=== PATIENT | female | born 1995 | race Caucasian/White ===

== ENCOUNTER → 2017-11-05 15:18 | Outpatient (CLI) | payer BC, SELFPAY ==
--- NOTE | 2017-11-05 15:25 | US_ITS ---
US extremity RT limited CLINICAL INDICATION: Palpable abnormality in the lower right back ITS.REASON: LUMP IF SKIN OF BACK ORDERING PHYSICIAN: Jesica Palomino PATIENT AGE: 22 years FINDINGS: There is a well circumscribed oval 2.5 x 2.2 x 1 cm homogeneous area of isoechogenicity in the subcutaneous tissue in the lower back corresponding to the palpable abnormality consistent with a lipoma. No cystic changes. No other significant anomalies. IMPRESSION: Palpable abnormality in the lower back on the right compatible with a lipoma
== END ==
PROVIDERS: PCP Nurse Practitioner Family; Visit Provider Nurse Practitioner Family
DX: R22.2 Localized swelling, mass and lump, trunk (principal); M54.5 Low back pain
CPT/HCPCS: 76882

== ENCOUNTER → 2019-04-21 11:59 | Outpatient (CLI) | payer BC, SELFPAY ==
[2019-04-21 14:57] LABS: Basophils % 0.4 % (0.1-2.0); Eosinophils # 0.1 K/mm3 (0.0-0.4); Eosinophils % 0.7 % (0.1-12.0); Hematocrit 37.7 % (37.0-47.0); Hemoglobin 12.6 g/dL (12.2-16.2); Lymphocytes # 1.6 K/mm3 (0.7-4.5); Lymphocytes % 21.7 % (10-50); Mean Corpuscular HGB Conc 33.4 g/dL (31.8-35.4); Mean Corpuscular Hemoglobin 28.2 pg (27.0-31.2); Mean Corpuscular Volume 84.4 fl (81-99); Mean Platelet Volume 8.4 fl (7.4-10.4); Monocytes # 0.4 K/mm3 (0.1-1.0); Monocytes % 5.3 % (1.7-9.3); Neutrophils # 5.1 K/mm3 (1.8-7.8); Neutrophils % 71.9 % (37.0-80.0); Platelet Count 270 K/mm3 (142-424); Red Blood Count 4.46 M/mm3 (4.20-5.40); Red Cell Distribution Width 14.1 % (11.5-17.5); White Blood Count 7.1 K/mm3 (4.8-10.8)
[2019-04-22 07:10] LABS: HIV Screen 4th Generation wRfx Non Reactive (Non Reactive)
[2019-04-22 07:40] LABS: Hepatitis B Surface Antigen Negative (Negative); Hepatitis C Antibody 0.1 s/co ratio (0.0-0.9)
[2019-04-23 18:48] LABS: Rapid Plasma Reagin Ab Titer Non Reactive (NonRea<1:1); Rubella Antibodies, IgG <0.90 index (Immune >0.99)
== END ==
PROVIDERS: Visit Provider Nurse Practitioner Obstetrics & Gynecology
DX: Z34.90 Encounter for supervision of normal pregnancy, unspecified, unspecified trimester (principal)
CPT/HCPCS: 36415; 85025; 86592; 86703; 86762; 86850; 87340; 87380; G0432

== ENCOUNTER → 2019-04-26 12:57 | Outpatient (CLI) | payer BC, SELFPAY ==
--- NOTE | 2019-04-26 12:58 | US_ITS ---
PROCEDURE: US OB TRANSVAGINAL CLINICAL INDICATION: US OB Dates COMPARISON: No exams were available for comparison FINDINGS: An intrauterine gestational sac is present with a pole with a crown-rump length of 2.16 cm correlating to gestational age of 8 weeks 6 days. heart tones are present with an FHR of 164 bpm. Yolk sac is noted. The uterus is retroverted. No adnexal mass. There is a 16 mm right ovarian cyst IMPRESSION: Live intrauterine gestation at 8 weeks 6 days Estimated due date by Ultrasound is 11/30/2019 Dictated by: Torres Wells MD 04/26/2019 19:33 Electronically signed by Torres Wells MD in [place] 04/26/2019 19:33
== END ==
PROVIDERS: PCP Nurse Practitioner Family; Visit Provider Nurse Practitioner Obstetrics & Gynecology
DX: O26.841 Uterine size-date discrepancy, first trimester (principal)
CPT/HCPCS: 76817

== ENCOUNTER → 2019-07-13 12:41 | Outpatient (CLI) | payer BC, SELFPAY ==
--- NOTE | 2019-07-13 12:41 | US_ITS ---
PROCEDURE: US OB /MATERNAL DETAIL CLINICAL INDICATION: US OB Complete Anatomy scan COMPARISON: US OB TRANSVAGINAL from 04/26/2019 FINDINGS: There is a single live fetus which is in cephalic presentation. heart body motion noted within FHR 155 beats per minute. The cervix is closed measuring 4 cm. Placenta is posterior and grade 1. Complete survey performed and was unremarkable on the submitted images as in PACS. No discrete anomalies identified on survey imaging by technologist. Active fetus. Three-vessel cord with satisfactory umbilical cord insertion. 4- chamber heart noted. Survey of brain & ventricles Unremarkable. Face and neck survey unremarkable. Diaphragm and chest views unremarkable. Abdomen: Both kidneys noted and unremarkable. Stomach noted and satisfactory. Spine: Survey of the spine satisfactory with no anomalies identified nor imaged. Both arms and legs noted. Amniotic Fluid: Adequate. Maternal adnexa: No significant findings. Measurements: Average ultrasound age 21weeks. Gestational Age 20 weeks 0 days Estimated due date by ultrasound age 0511/23/2019. Estimated weight 385g BPD = 21weeks 2days OFD = 21 weeks 6 days HC = 20weeks 6days AC = 21weeks 3days FL = 20weeks 3days Growth Percentile= 90% Heart Rate = 155bpm Cerebellum = 20weeks 2days Humerus = 20weeks 3days HC/AC is 1.13 CI is 0.76 FL/BPD is 0.66 FL/AC is 0.2 IMPRESSION: There is a single live fetus which is in cephalic presentation with an average ultrasound age of 21 weeks 0 days. No obvious anomalies. All parameters correlate. Please see above for detail. Dictated by: Torres Wells MD 07/14/2019 09:38 Electronically signed by Torres Wells MD in [facility] 07/14/2019 09:38
== END ==
PROVIDERS: PCP Nurse Practitioner Family; Visit Provider Nurse Practitioner Obstetrics & Gynecology
DX: Z36.0 Encounter for antenatal screening for chromosomal anomalies (principal)
CPT/HCPCS: 76811

== ENCOUNTER → 2019-09-08 09:03 | Outpatient (CLI) | payer BC, SELFPAY ==
[2019-09-08 09:29] LABS: Glucose,Fasting 85 mg/dl (74-100)
[2019-09-08 10:59] LABS: Glucose 1 Hour 124 mg/dL (74-100)
== END ==
PROVIDERS: Visit Provider Nurse Practitioner Obstetrics & Gynecology
DX: Z34.90 Encounter for supervision of normal pregnancy, unspecified, unspecified trimester (principal)
CPT/HCPCS: 36415; 82951

== ENCOUNTER → 2019-11-03 13:54 | Outpatient (CLI) | payer BC, SELFPAY | PROVIDERS: Visit Provider Nurse Practitioner Obstetrics & Gynecology | DX: Z34.90 Encounter for supervision of normal pregnancy, unspecified, unspecified trimester (principal) | CPT/HCPCS: 86403 ==

== ENCOUNTER 2019-11-30 05:22 | Inpatient (IN) | payer BC, SELFPAY ==
[2019-11-30] VITALS (11 sets, daily range): BP systolic 79–141; BP diastolic 49–96; PULSE 87–114; RESP 12–18; TEMP 36.6–36.7; O2SAT 98–100; BMI 37.1
[2019-11-30 06:24] LABS: Appearance,Urine CLEAR (Clear); Bilirubin,Urine Negative (Negative); Blood, Urine 2+ (Negative); Color,Urine YELLOW (Yellow); Glucose,Urine (UA) Negative (Negative); Ketones,Urine Negative (Negative); Leukocyte Esterase,Urine 2+ (Negative); Microscopic, Urine URINE MICROSCOPIC (MICROSCOPIC); Nitrate,Urine Negative (Negative); Protein,Urine Negative (Negative); Specific Gravity, Urine 1.015 (1.005-1.030); Urobilinogen,Urine 0.2 EU/dl (0.2)
[2019-11-30 06:31] LABS: Basophils % 0.4 % (0.1-2.0); Eosinophils # 0.2 K/mm3 (0.0-0.4); Eosinophils % 1.6 % (0.1-12.0); Hemoglobin 11.5 g/dL (12.2-16.2); Lymphocytes # 1.7 K/mm3 (0.7-4.5); Lymphocytes % 17.9 % (10-50); Mean Corpuscular HGB Conc 34.9 g/dL (31.8-35.4); Mean Corpuscular Hemoglobin 29.7 pg (27.0-31.2); Mean Corpuscular Volume 85.1 fl (81-99); Mean Platelet Volume 8.7 fl (7.4-10.4); Monocytes # 0.6 K/mm3 (0.1-1.0); Monocytes % 6.6 % (1.7-9.3); Neutrophils # 7.1 K/mm3 (1.8-7.8); Neutrophils % 73.7 % (37.0-80.0); Platelet Count 205 K/mm3 (142-424); Red Blood Count 3.88 M/mm3 (4.20-5.40); White Blood Count 9.7 K/mm3 (4.8-10.8)
[2019-11-30 06:36] LABS: Amphetamine/Metha Screen,Urine Negative ng/ml (<1000)
[2019-11-30 06:37] LABS: Barbiturates Screen,Urine Negative ng/ml (<200)
[2019-11-30 06:38] LABS: Benzodiazepines Screen,Urine Negative ng/ml (<200); Cannabinoid Screen,Urine Negative ng/ml (<50)
[2019-11-30 06:39] LABS: Cocaine Screen,Urine Negative ng/ml (<300)
[2019-11-30 06:40] LABS: Methadone Screen,Urine Negative ng/ml (<300)
[2019-11-30 06:41] LABS: Opiate Screen,Urine Negative ng/ml (<300)
[2019-11-30 06:42] LABS: Phencyclidine Screen,Urine Negative ng/ml (<25)
[2019-11-30 06:49] LABS: Bacteria,Urine 1+ /lpf; Mucus,Urine Trace /lpf; Squamous Epithelial Cell,Urine 20-50 #/hpf (0-5); WBC,Urine TNTC #/hpf (0-3)
--- NOTE | 2019-11-30 07:13 | HMH.LABNOT ---
Labor Note - Subjective: Date: 11/30/19 Time: 07:13 regular contraction - Objective: NST:: Reactive Contractions:: every 4-5 minutes Cervical Dilation:: 3-4 Effacement:: 90% Station: -1 Membranes: artificially ruptured Comment:: thin mec - Fetus: Monitoring?: Yes monitoring type:: External - Assessment: Labor progressing?: Yes Cephalopelvic disproportion?: No Patient Problems: All Active Problems (Acute) - Plan: Anesthesia for epidural?: No Continue to labor down?: Yes Plan for ?: No Continue to monitor?: Yes Start pushing?: No
--- NOTE | 2019-11-30 08:18 | HMH.OBAPHP ---
OB - H&P: HPI Antepartum - History of Present Illness Chief complaint: Term History of present illness: She is a 24-year-old 1 para 0 at 40 weeks gestational age. She is been having a lot of pressure and measures up larger than her dates so we elected to bring her in for induction of labor. - History of Present Criteria for establishing EDC:: based on 1st trimester US only care: good care Ultrasounds: normal 1st trimester US, normal mid trimester US Obstetrical complications: none Medical complications: none [facility] History I have reviewed the patient's past medical history: Yes Medical History: Denies:: Seizures *Have you ever received a pneumonia vaccine?: No *Have you received a flu vaccine this season?: No Other Medical History: Denies: Blood Transfusion Reaction Other Surgeries: Yes: No Previous Surgery, Hernia Repair, Other. No: Amputation: No Fractures: No - *Social History Smoking Status: Never smoker Alcohol Intake: never Substance Use Type: denies use *Occupational Status:: employed Housing: house Household Members: significant other *Travel in the last 8 weeks: None Family Hx:: Other Para: 0 Review of Systems - Review of Systems Review of systems:: pertinent systems reviewed and negative unless documented below Meds Home Medications Medication Instructions Recorded Confirmed Type vits 75-iron 28 mg-folic 1 tab PO DAILY each 04/21/19 11/30/19 History acid 800 mcg-omega-3 oral combo pack Ferrous Sulfate 325 mg PO DAILY 11/30/19 11/30/19 History Allergies Allergy/AdvReac Type Severity Reaction Status Date / Time No Known Allergies Allergy Verified 11/29/19 09:15 OB - H&P: Exam - Physical Exam Vital signs: Temp Pulse Resp BP Pulse Ox 98.1 F 110 H 18 135/89 98 11/30/19 05:41 11/30/19 05:41 11/30/19 05:41 11/30/19 05:41 11/30/19 05:41 - Constitutional no acute distress - Routine HEENT Exam Head: Present: normocephalic Eye: Present: EOMI, PERRL ENT: Present: mucous membranes moist - Routine Neck Exam Present: supple, full ROM - Routine Respiratory Exam Absent: accessory muscle use (good air entry bilaterally), respiratory distress, wheezes, crackles - Routine Cardiovascular Exam Present: RRR. Absent: murmur - Routine Abdominal Exam Present: soft, normoactive bowel sounds. Absent: tenderness, distended, guarding - Routine Rectal Exam Patient deferred: visual exam, digital exam - Routine Exam Patient deferred: external exam, groin exam, perineal exam - Routine Extremities Exam Present: full ROM. Absent: cyanosis, edema - Routine Skin Exam Present: intact. Absent: cyanosis - Routine Neurological Exam Present: alert, oriented X3 - Routine Psychiatric Exam Present: normal affect OB - Results - Labs Labs: Short CBC 11/30/19 Range/Units 05:50 WBC 9.7 (4.8-10.8) K/mm3 Hgb 11.5 L (12.2-16.2) g/dL Hct 33.0 L (37.0-47.0) % Plt Count 205 (142-424) K/mm3 Urine 11/30/19 Range/Units 05:40 Urine Color Yellow (Yellow) Urine Appearance Clear (Clear) Urine pH 7.0 (5.0-8.5) Ur Specific [place] 1.015 (1.005-1.030) Urine Protein Negative (Negative) Urine Glucose (UA) Negative (Negative) OB - A/P Antepartum (1) Normal delivery at term Current visit: Yes Status: Acute - Additional Plan Planning to breastfeed?: Yes Plan: induction Additional Information:: She is 40 weeks and 0 days gestational age. She has a large infant. We will go ahead and deliver her today.
[2019-11-30 08:27] LABS: Coronavirus 19 IgG Antibody Negative (Negative); Coronavirus 19 IgM Antibody Negative (Negative)
--- NOTE | 2019-11-30 09:55 | HMH.LABNOT ---
Labor Note - Subjective: Date: 11/30/19 Time: 09:55 regular contraction - Objective: NST:: Reactive Contractions:: every 2-3 minutes Cervical Dilation:: 4 Effacement:: 90% Station: -1 Membranes: artificially ruptured - Fetus: Monitoring?: Yes monitoring type:: External - Assessment: Labor progressing?: Yes Cephalopelvic disproportion?: No Patient Problems: All Active Problems Normal delivery at term (Acute) (Acute) - Plan: Anesthesia for epidural?: No Continue to labor down?: Yes Plan for ?: No Continue to monitor?: Yes Start pushing?: No
--- NOTE | 2019-11-30 12:11 | HMH.LABNOT ---
Labor Note - Subjective: Date: 11/30/19 Time: 12:11 regular contraction - Objective: NST:: Reactive Contractions:: every 2-3 minutes Cervical Dilation:: 4 Effacement:: 90% Station: -1 Membranes: artificially ruptured - Fetus: Monitoring?: Yes monitoring type:: Combination Comment:: I inserted an IUPC. - Assessment: Labor progressing?: No Cephalopelvic disproportion?: Yes Patient Problems: All Active Problems Normal delivery at term (Acute) (Acute) - Plan: Anesthesia for epidural?: No Continue to labor down?: Yes Plan for ?: Yes Continue to monitor?: Yes Start pushing?: No Comment:: She really has not changed much over the last 4 hours. We will give her another couple of hours to see if she changes. If she does not get any substantial changes in the cervix we will go ahead with a for pelvic disproportion.
--- NOTE | 2019-11-30 13:53 | HMH.LABNOT ---
Labor Note - Subjective: Date: 11/30/19 Time: 13:53 regular contraction - Objective: NST:: Reactive Contractions:: every 2-3 minutes Cervical Dilation:: 4-5 Effacement:: 90% Membranes: artificially ruptured - Fetus: Monitoring?: Yes monitoring type:: Internal and External - Assessment: Labor progressing?: No Cephalopelvic disproportion?: Yes Patient Problems: All Active Problems Normal delivery at term (Acute) (Acute) - Plan: Anesthesia for epidural?: Yes Plan for ?: Yes Continue to monitor?: Yes Start pushing?: No Comment:: She remains about 4 to 5 cm. There really has been no change in her cervix. The cervix is a little thicker. There is considerable molding of the head but really no descent. We will plan for her to have an epidural right now and then plan for .
--- NOTE | 2019-11-30 14:43 | HMH.ACPN2 ---
Internal Medicine - PN: Subj *Date: 11/30/19 *Time: 14:43 Interval history: Her cervix has really not changed. It still 4 to 5 cm. There is significant molding of the head. She has been 4 to 5 cm for about 4 to 5 hours. As result of this we will go ahead with a section. Exam Vital signs and Labs for Last 24 Hours: Temp Pulse Resp BP Pulse Ox 98.1 F 93 H 18 141/96 H 98 11/30/19 08:32 11/30/19 08:32 11/30/19 08:32 11/30/19 08:32 11/30/19 08:32 Laboratory Results - last 24 hr 11/30/19 05:40: Urine Color Yellow, Urine Appearance Clear, Urine pH 7.0, Ur Specific [place] 1.015, Urine Protein Negative, Urine Glucose (UA) Negative, Urine Ketones Negative, Urine Blood 2+, Urine Nitrate Negative, Urine Bilirubin Negative, Urine Urobilinogen 0.2, Ur Leukocyte Esterase 2+ A, Urine RBC 10-20, Urine WBC Tntc, Ur Squamous Epith Cells 20-50, Urine Bacteria 1+, Urine Mucus Trace 11/30/19 05:40: Urine Opiates Screen Negative, Urine Methadone Screen Negative, Ur Barbituates Screen Negative, Ur Phencyclidine Scrn Negative, Ur Amphetamines Screen Negative, U Benzodiazepines Scrn Negative, Urine Cocaine Screen Negative, U Marijuana (THC) Screen Negative 11/30/19 05:50: WBC 9.7, RBC 3.88 L, Hgb 11.5 L, Hct 33.0 L, MCV 85.1, MCH 29.7, MCHC 34.9, RDW 15.0, Plt Count 205, MPV 8.7, Neut % (Auto) 73.7, Lymph % (Auto) 17.9, [place] % (Auto) 6.6, Eos % (Auto) 1.6, Baso % (Auto) 0.4, Neut # (Auto) 7.1, Lymph # (Auto) 1.7, [place] # (Auto) 0.6, Eos # (Auto) 0.2, Baso # (Auto) 0.0 11/30/19 05:50: Blood Type A Positive, Antibody Screen Negative 11/30/19 05:50: SARS-CoV-2 IgG Ab (Rapid) Negative, SARS-CoV-2 IgM Ab (Rapid) Negative I & O for Last 24 hours: Intake & Output 11/28/19 11/29/19 11/30/19 12/01/19 11:59 11:59 11:59 11:59 Weight 203 lb - Constitutional no acute distress Assessment and Plan (1) Normal delivery at term Current visit: Yes Status: Acute Category: Medical Code(s): O80 - Encounter for full-term uncomplicated delivery (2) Delivery by section using low vertical uterine incision Current visit: Yes Status: Acute Category: Medical Code(s): O82 - Encounter for delivery without indication (3) pelvic disproportion delivered Current visit: Yes Status: Acute Category: Medical Code(s): O33.9 - Maternal care for disproportion, unspecified - Assessment and plan all Dx Assessment and Plan for all problems:: Her cervix is still 4 to 5 cm. We will go ahead with a section for pelvic disproportion. We discussed the risks of surgery that includes bleeding, infection, injuries to the bowel and bladder. We discussed the rare risk of DVT and the need for DVT prophylaxis. All questions were answered and consents were signed.
--- NOTE | 2019-11-30 16:05 | HMH.OPNOTE ---
Date of procedure: 11/30/19 Pre-op Diagnosis:: Term , large for gestational age, pelvic disproportion Post-op Diagnosis:: Term , large for gestational age, pelvic disproportion, uterine atony Procedure performed:: Primary lower segment transverse section, B-Patel suture Surgeon:: Gregorio Paul MD [employer](s):: Dr. Eason DIRECTOR OF ONLINE EDUCATION:: Marshal Valiente Anesthesia: epidural Estimated blood loss (mL): 1,000 Clinical Note:: She is a 24-year-old 1 para 0 at 40 weeks gestational age. She had a rather large baby and we elected to induce her labor at term. Her due date was today. She was started on IV oxytocin had her membranes ruptured. She really failed to progress beyond about 5 cm. The cervix was quite edematous. She had been 4 to 5 cm for approximately 4 to 5 hours. There was significant molding of the head. After having discussed the risks and benefits we elected to perform a primary lower segment transverse section for pelvic disproportion. Operative findings:: She delivered a liveborn male child at 3:32 PM in the afternoon of November. The baby had Apgars of 8 at 1 minute and 9 at 5 minutes. pH is currently pending. The baby weighed 9 pounds 0 ounces. Ovaries and tubes appeared normal. The uterus was quite boggy after delivery. Operative note:: She was taken to the operating room where spinal anesthesia was found be adequate. She was prepped and draped in normal sterile fashion in the supine position with a leftward tilt. A Long catheter was in the bladder. A Pfannenstiel skin incision was made with knife then carried through to the underlying layer of fascia with cautery. The fascia was opened in the midline with cautery and extended laterally using Logan scissors. [place] clamps were applied to the superior aspect of the fascial incision which was tented up and the underlying rectus muscles dissected off using cautery. The [place] clamps were then applied to the inferior aspect of the fascial incision which in a similar fashion was tented up and the underlying rectus muscles dissected off using cautery. The rectus muscles were then in the midline, the peritoneum identified, and entered sharply with Metzenbaum scissors. This incision was then extended superiorly and inferiorly with cautery. We had good visualization of the bladder inferiorly. The bladder peritoneum was then opened in the midline and extended laterally using Metzenbaum scissors. A bladder flap was created digitally. Transverse incision was made through the uterine muscle to the amnion. This incision was then extended laterally using fingers traction. The amnion was entered sharply with knife. There was thin meconium in the amniotic fluid. The infant's head was then delivered atraumatically. A loose nuchal cord was then reduced. This was followed by the anterior shoulder and the rest of the 's body atraumatically. The oropharynx and nasopharynx were bulb suctioned. The infant was then handed off to Dr. Baird who assigned Apgars of 8 at 1 minute and 9 at 5 minutes. We then obtained cord blood as well as cord pH. Using gentle traction on the cord and countertraction on the fundus I was able to easily deliver the placenta intact. It had a normal three-vessel cord. The uterus was then cleared of clots and debris . The uterine incision was then closed using running 0 Vicryl suture in a locked fashion. A second layer of the same suture was used to imbricate the first layer. The bladder peritoneum was then closed using running 2-0 Vicryl suture in a locked fashion. The gutters and cul-de-sac were then cleared of clots and debris . Once again hemostasis was assured. The uterus at this time was noted to be quite boggy so we elected to place a B-Patel suture. Using a #1 Vicryl suture with a protective point needle I took a large bite anteriorly. I then went over the uterus and took 2 bites pos
--- NOTE | 2019-11-30 16:14 | HMH.ANESCL ---
[facility] Anesthesia Checklist - Structural Data Admitted From: Inpatient Planned Operative Procedure/s: labor epid Consent for Planned Operative Procedure(s) Verified: Yes - Additional verifications Anesthesia Reactions: No Hx Blood Transfusions: No Blood Transfusion Reaction: No - Airway Assessment C-Spine Mobility Assessed: Yes TMJ Mobility Assessed: Yes Dentition: Good Dentition - Neurological Assessment Level of Consciousness: Awake, Alert, Appropriate - Anesthesia Plan Anesthesia Risk discussed: Yes Anesthesia Plan: Verified ASA Class: II Anesthesia Type: Epidural [facility] History I have reviewed the patient's past medical history: Yes Medical History: Denies:: Seizures *Have you ever received a pneumonia vaccine?: No *Have you received a flu vaccine this season?: No Other Medical History: Denies: Blood Transfusion Reaction Anesthesia experience/problems:: none Other Surgeries: Yes: No Previous Surgery, Hernia Repair, Other. No: Amputation: No Fractures: No - *Social History Smoking Status: Never smoker Alcohol Intake: never Substance Use Type: denies use *Occupational Status:: employed Housing: house Household Members: significant other *Travel in the last 8 weeks: None Family Hx:: Other Para: 0
--- NOTE | 2019-11-30 16:18 | P.PN_ITS ---
[facility] Anesthesia Record Part I Intake, IV Amount: 1,000 Estimated blood loss (mL): 1,000 Urine output (mL): 400 Blood Pressure: 80/50 SaO2: 100 Pulse Rate: 114 Respiratory Rate: 12 Temperature: 98 F Patient is:: Awake, Stable Stable to PACU at:: 16:10
[2019-11-30 16:48] LABS: Cord Blood PH 7.43 (7.35-7.45)
[2019-12-01 08:20] VITALS: BP 131/80; PULSE 121; RESP 18; TEMP 36.9; O2SAT 98
--- NOTE | 2019-12-01 08:31 | HMH.ACPN2 ---
Internal Medicine - PN: Subj *Date: 12/01/19 *Time: 08:31 Interval history: She is doing well. Her pain is well controlled. She is eating and drinking and ambulating. Her lochia is normal. Her incision is clean and dry. Exam Vital signs and Labs for Last 24 Hours: Temp Pulse Resp BP Pulse Ox 97.9 F 111 H 14 94/56 L 100 11/30/19 17:08 11/30/19 17:08 11/30/19 17:08 11/30/19 17:08 11/30/19 17:08 Laboratory Results - last 24 hr 11/30/19 16:43: Cord ABG pH 7.43 I & O for Last 24 hours: Intake & Output 11/28/19 11/29/19 11/30/19 12/01/19 11:59 11:59 11:59 11:59 Intake Total 1000 / 1000 Output Total 1500 / 1500 Balance -500 / -500 Weight 203 lb Microbiology Reports for the Last 24 Hours: Microbiology 11/30/19 05:40 Urine,Clean Catch Urine Culture - Preliminary NO GROWTH AFTER 24 HOURS - Constitutional no acute distress - *Routine HEENT Exam Head: Present: normocephalic Eye: Present: EOMI, PERRL ENT: Present: mucous membranes moist Assessment and Plan (1) Normal delivery at term Current visit: Yes Status: Acute Category: Medical Code(s): O80 - Encounter for full-term uncomplicated delivery (2) Delivery by section using low vertical uterine incision Current visit: Yes Status: Acute Category: Medical Code(s): O82 - Encounter for delivery without indication (3) pelvic disproportion delivered Current visit: Yes Status: Acute Category: Medical Code(s): O33.9 - Maternal care for disproportion, unspecified - Assessment and plan all Dx Assessment and Plan for all problems:: She is doing well. We will plan to send her home in 48 hours.
[2019-12-01 08:45] LABS: Hematocrit 24.6 % (37.0-47.0); Hemoglobin 8.4 g/dL (12.2-16.2)
[2019-12-01 10:11] VITALS: BP 94/56; PULSE 111; TEMP 36.6
--- NOTE | 2019-12-01 10:11 | HMH.ANESII ---
[facility] Anesthesia Record Part II Discharge Time: 17:08 Destination: Obstetric PACU nurse assessment reviewed?: Yes Patient Condition:: Good Anesthesia Complications:: None Swallowing reflex intact?: Yes Cyanosis?: No Blood Pressure: 94/56 Pulse Rate: 111 Temperature: 97.9 F Mental Status: Alert & Oriented Pain level:: 0 Nausea and/or vomitting:: None Intake, IV Amount: 0
[2019-12-02] VITALS (20 sets, daily range): BP systolic 105–122; BP diastolic 56–68; PULSE 80–116; RESP 16–20; TEMP 36.3–36.9; O2SAT 97–99
[2019-12-02 07:42] LABS: Hemoglobin 6.8 g/dL (12.2-16.2)
--- NOTE | 2019-12-02 10:54 | HMH.ACPN2 ---
Internal Medicine - PN: Subj *Date: 12/02/19 *Time: 10:54 Interval history: She is doing well. Her hemoglobin has dropped to 6.8 so we will go ahead and transfuse her. I suspect she has a small amount of ooze going on. She denies any chest pain, shortness of breath or dizziness. Exam Vital signs and Labs for Last 24 Hours: Temp Pulse Resp BP Pulse Ox 97.9 F 89 20 105/56 L 99 12/02/19 10:50 12/02/19 10:50 12/02/19 10:50 12/02/19 10:50 12/02/19 10:50 Laboratory Results - last 24 hr 11/30/19 05:50: Blood Type A Positive, Antibody Screen Negative, Crossmatch (AHG) See Detail 12/02/19 06:00: Hgb 6.8 L*, Hct 20.0 L* I & O for Last 24 hours: Intake & Output 11/29/19 11/30/19 12/01/19 12/02/19 11:59 11:59 11:59 11:59 Intake Total 1000 / 1000 0 / 0 Output Total 1500 / 1500 Balance -500 / -500 0 / 0 Weight 203 lb Microbiology Reports for the Last 24 Hours: Microbiology 11/30/19 05:40 Urine,Clean Catch Urine Culture - Final NO GROWTH AFTER 48 HOURS - Constitutional no acute distress - *Routine HEENT Exam Head: Present: normocephalic Eye: Present: EOMI, PERRL ENT: Present: mucous membranes moist Assessment and Plan (1) Normal delivery at term Current visit: Yes Status: Acute Category: Medical Code(s): O80 - Encounter for full-term uncomplicated delivery (2) Delivery by section using low vertical uterine incision Current visit: Yes Status: Acute Category: Medical Code(s): O82 - Encounter for delivery without indication (3) pelvic disproportion delivered Current visit: Yes Status: Acute Category: Medical Code(s): O33.9 - Maternal care for disproportion, unspecified (4) anemia Current visit: Yes Status: Acute Category: Medical Code(s): O90.81 - Anemia of the puerperium - Assessment and plan all Dx Assessment and Plan for all problems:: She has dropped her hemoglobin overnights from 8.4-6.8. We will go ahead and give her 2 units of blood. She is otherwise doing well. She denies any shortness of breath or dizziness.
[2019-12-02 15:35] LABS: Hematocrit 26.5 % (37.0-47.0)
[2019-12-02 15:39] LABS: Hemoglobin 9.1 g/dL (12.2-16.2)
[2019-12-03 07:07] LABS: Hematocrit 25.4 % (37.0-47.0); Hemoglobin 8.7 g/dL (12.2-16.2)
[2019-12-03 08:00] VITALS: BP 121/74; PULSE 83; RESP 18; TEMP 36.4; O2SAT 99
--- NOTE | 2019-12-03 09:54 | P.CONPHA_ITS ---
[facility] Pharmacy VTE Monitoring - Patient Demographics Admission date: 11/30/19 Report Date: 12/03/19 Time: 09:55 Allergies/Adverse Reactions: Patient Allergies No Known Allergies Allergy (Verified 11/29/19 09:15) Height: 1.57 m Weight: 92.079 kg Patient Problems: Current Active Problems Normal delivery at term (Acute) Delivery by section using T-shaped incision (Acute) Delivery by section using low vertical uterine incision (Acute) pelvic disproportion delivered (Acute) anemia (Acute) - VTE Risk Labs: VTE Related Lab Results Hgb 8.7 g/dL (12.2-16.2) L 12/03/19 06:27 Hct 25.4 % (37.0-47.0) L 12/03/19 06:27 Plt Count 205 K/mm3 (142-424) 11/30/19 05:50 - Prophylaxis VTE Prophylaxis Ordered?: Yes Types of VTE Prophylaxis: IPCS Thigh High Location of Applied Device: Bilateral Lower Extremeties
--- NOTE | 2019-12-03 10:08 | HMH.DCSUM ---
General - General Admission date:: 11/30/19 Discharge date: 12/03/19 HPI HPI: She is a 24-year-old 1 now para 1 who is 40 weeks gestational age. She was brought in for induction of labor at term. Hospital Course Hospital Course: She was started on IV oxytocin had her membranes ruptured. She progressed to 4 to 5 cm but really failed to progress beyond this. As result of that we elected perform a primary lower segment transverse section for pelvic disproportion. On November 30, 2019 she underwent a primary lower segment transverse section and delivered a liveborn male child at 3:32 PM in the afternoon. The baby weighed 9 pounds 0 ounces and had Apgars of 8 at 1 minute and 9 at 5 minutes. She has done well postoperatively but she did have a drop in her hemoglobin. This required 2 units of blood. Her hemoglobin today is 8.7 and is stabilized. She has a positive blood, she is rubella nonimmune and will receive MMR prior to discharge. She is group B streptococcus negative. Her lube technician Dr. Mcghee. She is breast-feeding. She is discharged home to follow-up with me in approximately 2 weeks time. She will continue with her vitamins and iron. She was given a prescription for Percocet 5/325 number 20 tablets. She will also take ibuprofen. She was given the usual instructions with respect to limiting her activity, driving and sexual activity. Her condition on discharge is stable and improved. Rhogam Administration: Not Indicated Objective Vital signs: Temp Pulse Resp BP Pulse Ox 97.6 F 83 18 121/74 99 12/03/19 08:00 12/03/19 08:00 12/03/19 08:00 12/03/19 08:00 12/03/19 08:00 no acute distress - *Routine HEENT Exam Head: Present: normocephalic Eye: Present: EOMI, PERRL ENT: Present: mucous membranes moist Results Labs on day of discharge: Labs from last 24 hours 12/03/19 12/02/19 11/30/19 06:27 15:20 05:50 Hgb 8.7 L 9.1 L D Hct 25.4 L 26.5 L Blood Type A Positive Antibody Screen Negative Crossmatch (AHG) See Detail DS: Diagnosis - Discharge Diagnosis (1) Normal delivery at term Status: Acute (2) Delivery by section using low vertical uterine incision Status: Acute (3) pelvic disproportion delivered Status: Acute (4) anemia Status: Acute Discharge Plan - Patient Discharge Instructions ACTIVITY: No heavy lifting DIET: continue same diet Additional Instructions: Nothing in the vagina, no strenuous activity and no heavy lifting. Patient Instructions: How to Care for a Surgical Wound, Depression, Anemia, Hemorrhage, DI for , DI for Pre-eclampsia, Preventing the Spread of Coronavirus Discharge Instructions - Follow up Plan Follow up with: Gregorio Paul MD [Staff Physician] - 12/14/19 10:45 am Disposition: Home, Self-[facility] Medications: Home Medications Medication Instructions Recorded Confirmed Type vits 75-iron 28 mg-folic 1 tab PO DAILY each 04/21/19 11/30/19 History acid 800 mcg-omega-3 oral combo pack RX: Ferrous Sulfate 325 mg PO DAILY 11/30/19 11/30/19 History Oxycodone HCl/Acetaminophen 1 tab PO Q4H PRN #20 tablet 12/03/19 Rx [Percocet 5/325mg tablet] Prescriptions/Medication Reconciliation: New Oxycodone HCl/Acetaminophen [Percocet 5/325mg tablet] 1 tab PO Q4H PRN #20 tablet PRN Reason: Severe Pain Continued vits 75-iron 28 mg-folic acid 800 mcg-omega-3 oral combo pack 1 tab PO DAILY each RX: Ferrous Sulfate 325 mg PO DAILY - Problem Reconciliation Problems Reviewed?: Yes
--- NOTE | 2019-12-03 12:00 | PC.NURSE ---
all charting and care done under my direct supervision on 12/03/2019 ( yasmin martinez)
== END 2019-12-03 12:05 | disposition home or self-care (01) | DRG 788 ==
PROVIDERS: Admitting Provider Nurse Practitioner Obstetrics & Gynecology; PCP Family Medicine; Visit Provider Nurse Practitioner Obstetrics & Gynecology
PROC: 10D00Z1 Extraction of Products of Conception, Low, Open Approach (ICD-10-PCS; CPT 59514; principal; 2019-11-30 15:00)
DX: O36.63X0 Maternal care for excessive fetal growth, third trimester, not applicable or unspecified (principal); Z37.0 Single live birth; Z23 Encounter for immunization; O75.89 Other specified complications of labor and delivery; O33.5XX0 Maternal care for disproportion due to unusually large fetus, not applicable or unspecified; Z3A.40 40 weeks gestation of pregnancy; O90.81 Anemia of the puerperium
CPT/HCPCS: 59514; 36415; 59025; 80305; 81001; 82800; 85014; 85018; 85025; 86328; 86850; 87086; 90707; C1758; J2405; P9016

== ENCOUNTER → 2020-05-15 12:00 | Outpatient (CLI) | payer BC, SELFPAY | PROVIDERS: PCP Family Medicine; Visit Provider Family Medicine | DX: Z03.818 Encounter for observation for suspected exposure to other biological agents ruled out (principal) | CPT/HCPCS: U0003 ==

== ENCOUNTER 2020-07-15 09:04 | Emergency (ER) | payer BC, SELFPAY ==
[2020-07-15 09:05] VITALS: BP 149/98; PULSE 98; RESP 21; TEMP 36.2; O2SAT 98; BMI 29.6
--- NOTE | 2020-07-15 09:34 | HMH.EDUTC ---
[facility] [place] Disposition Clinical Impression: Exposure to COVID-19 virus Disposition: Home, Self-Care Condition on Discharge: Good Instructions: Preventing the Spread of Coronavirus Discharge Instructions Additional Instructions: Drink plenty of fluids. Take tylenol for pain or fever. Return if you begin to have difficulty breathing. Follow up with your regular doctor. GO TO THE ER FOR ANY WORSENING SYMPTOMS Referrals: Florencio Hutchison MD [Primary Care Provider] - Time of Disposition: 09:41 Medical Decision Making - Medical Records Medical records reviewed: No: I reviewed the patient's medical records. - Anselmo Inquiry Pt receiving controlled substance: No Vital Signs: 07/15/20 09:05 07/15/20 09:55 Temperature 97.1 F L 97.1 F L Temperature Source Temporal Artery Scan Pulse Rate 98 H Pulse Rate [Right Brachial] 98 H Respiratory Rate 21 21 Blood Pressure 149/98 H Blood Pressure [Right Arm] 149/98 H Blood Pressure Mean [Right Arm] 115 Blood Pressure Source [Right Arm] Automatic Cuff Blood Pressure Position [Right Arm] Sitting 02 Sat by Pulse Oximetry 98 Oxygen Delivery Method Room Air Orders (Tests/Meds): ORDERS Category Date Time Status Covid-19 Nasal PCR ([facility]) Routine Lab 07/15/20 09:20 Received [facility] HPI - General Stated complaint: covid exposure Time Seen by Provider: 07/15/20 09:34 - History of Present Illness Provider Complaint: She states that she has been with a family member that has covid-19. She denies any symptoms so far, but her work wants her to be tested for covid. - Related Data Home Medications Medication Instructions Recorded Confirmed No Known Home Medications 04/17/20 04/17/20 Allergies Allergy/AdvReac Type Severity Reaction Status Date / Time No Known Allergies Allergy Verified 04/17/20 17:19 [facility] History - Hepatitis A Screen Attestation statement:: This patient has been screened for Hepatitis A risk factors. I have reviewed the patient's past medical history: Yes Medical History: Denies:: Seizures Other Medical History: Reports: Anemia. Denies: Blood Transfusion Reaction Other Surgeries: Yes: No Previous Surgery, Hernia Repair, Other. No: Amputation: No Fractures: No Comment: 1997- Umbilical hernia repair. 2018- surgery on her back to remove a Lipoma - Social History Smoking Status: Never smoker Alcohol Intake: never Substance Use Type: denies use Occupational Status: employed Housing: house Household Members: significant other Family Hx:: Other Comment: Douglas LINN Obtained: Yes All systems reviewed & no additional complaints - Constitutional Constitutional: Reports system reviewed and no additional complaints, except as docu - Eyes Eyes: Reports system reviewed and no additional complaints, except as docu - ENT Ears, Nose, Mouth, and Throat: Reports system reviewed and no additional complaints, except as docu - Cardiovascular Cardiovascular: Reports system reviewed and no additional complaints, except as docu - Respiratory Respiratory: Reports system reviewed and no additional complaints, except as docu - Gastrointestinal Gastrointestingal: Reports: system reviewed and no additional complaints, except as docu Physical Exam - General General appearance: alert, in no apparent distress - Head Head exam: atraumatic, normocephalic, normal inspection - Eye Eye exam: Present: normal appearance, PERRL, EOMI - ENT ENT exam: Present: normal exam, normal oropharynx, mucous membranes moist, TM's normal bilaterally, normal external ear exam - Neck Neck exam: Present: normal inspection, full ROM, trachea midline. Absent: meningismus, lymphadenopathy - Chest Chest inspection: Present: normal inspection, symmetric chest wall rise. Absent: tenderness - Respiratory Respiratory exam: Present: normal lung sounds bilaterally. Absent: respiratory distress - Cardiovascular Card
[2020-07-15 09:55] VITALS: BP 149/98; PULSE 98; RESP 21; TEMP 36.2; O2SAT 98
== END 2020-07-15 10:00 | disposition home or self-care (01) ==
PROVIDERS: Emergency Provider Nurse Practitioner Family; PCP Family Medicine
DX: Z20.822 Contact with and (suspected) exposure to COVID-19 (principal)
CPT/HCPCS: 99202; G0463; U0003

== ENCOUNTER 2020-10-27 14:21 | Emergency (ER) | payer BC, SELFPAY ==
[2020-10-27 14:25] VITALS: BP 138/81; PULSE 96; RESP 20; TEMP 36.5; O2SAT 98; BMI 30.5
--- NOTE | 2020-10-27 15:05 | HMH.EDUTC ---
[facility] [place] Disposition Clinical Impression: Strep throat Disposition: Home, Self-Care Condition on Discharge: Good Instructions: DI for COVID-19 (Suspected or Confirmed ), Coronavirus Disease 2019 Additional Instructions: *Monitor Temp, Over the counter Motrin or Tylenol as directed/as needed Tylenol every 4 hours and Motrin every 6 hours (as long as your family doctor has told you that you can take it) for fever or pain. and straight to ER if unable to lower temp less than 101.0 after medication given *Warm salt water gargles may help to soothe the throat *Throat Lozenges *Warm fluids like tea with honey may help to soothe the throat *Sleep elevated *Humidifier/Vaporizer *If you did not take Penicillin shot or was unable to, start taking antibiotic immediately and make sure that you take it for the FULL length of time although you should start to feel better in 24-48 hours *change toothbrush and toothpaste 24-48 hours after starting to take antibiotics so you do not reinfect yourself Monitor Temp. Tylenol and/or Ibuprofen as needed. ER if fever is no less than 101 despite alternating Tylenol and Ibuprofen * Encourage fluids, water, Gatorade, powerade, pedialyte if infant/toddler/or child *Cold fluids, popsicles and ice cream may feel good on his throat Follow up IMMEDIATELY for new or worsening symptoms or no Noticeable improvement over the next 48-72 hours. 911 for difficulty breathing or swallowing Prescriptions: cephALEXin [cephALEXin 500mg capsule*] 500 mg PO BID 10 Days #20 cap Transmission Status: Pending to [facility] Referrals: Florencio Hutchison MD [Primary Care Provider] - As needed Forms: Work/School Release Time of Disposition: 15:39 Medical Decision Making - Anselmo Inquiry Pt receiving controlled substance: No Anselmo was queried for this patient: No Vital Signs: 10/27/20 14:25 Temperature 97.7 F Temperature Source Oral Pulse Rate [Left Brachial] 96 H Respiratory Rate 20 Blood Pressure [Left Arm] 138/81 Blood Pressure Mean [Left Arm] 100 Blood Pressure Source [Left Arm] Automatic Cuff Blood Pressure Position [Left Arm] Sitting 02 Sat by Pulse Oximetry 98 Oxygen Delivery Method Room Air - Lab Data Lab results reviewed: Yes: I reviewed the patient's lab results. Lab Results 10/27/20 15:08: Strep Scn Rapid Clinic Positive A Orders (Tests/Meds): ORDERS Category Date Time Status Covid-19 Nasal PCR ([facility]) Routine Lab 10/27/20 14:37 Received [facility] [place] HPI - General Stated complaint: covid exposure, symptoms Time Seen by Provider: 10/27/20 15:05 Mode of Arrival: Ambulatory Source of Information: Patient Limitations: No Limitations Description of Symptoms (Recalled from Triage Doc. by RN): PATIENT C/O DRY COUGH AND HEADACHE SINCE 10/23. STATES SHE WAS EXPOSED TO COVID THE THURSDAY BEFORE SYMPTOMS STARTED HEENT Symptoms (Recalled from RN notes): Yes Resp Symptoms (Recalled from RN notes): Yes Skin Symptoms (Recalled from RN notes): No MS Symptoms (Recalled from RN notes): No Functional Status (Recalled from RN notes): WNL - History of Present Illness Provider Complaint: Patient states that she was around someone that tested positive for COVID State that since then she has been having dry cough, headache body aches and chills and throat feeling scratchy States that she was concerned due to recent exposure to COVID - Related Data Previous Rx's Medication Instructions Recorded cephALEXin [cephALEXin 500mg 500 mg PO BID 10 Days #20 cap 10/27/20 capsule*] Allergies Allergy/AdvReac Type Severity Reaction Status Date / Time No Known Allergies Allergy Verified 04/17/20 17:19 - Worker's Comp Is this a Worker's Comp case?: No [facility] History - Hepatitis A Screen Drug use history?: No High risk sexual behaviors?: No History of sexually transmitted infection?: No Currently employed?: No Childcare worker?: No Do you have indoor plumbing?: Yes Do you have electricity
[2020-10-27 15:20] LABS: UTC Strep Screen (Rapid) Positive (Negative)
[2020-10-27 15:40] VITALS: BP 138/81; PULSE 96; RESP 20; TEMP 36.5; O2SAT 98
--- NOTE | 2020-10-28 09:47 | PC.NURSE ---
PATIENT NOTIFIED OF POSITIVE COVID TEST AT THIS TIME
== END 2020-10-27 15:43 | disposition home or self-care (01) ==
PROVIDERS: Emergency Provider Nurse Practitioner; PCP Family Medicine
DX: U07.1 COVID-19 (principal); J02.0 Streptococcal pharyngitis
CPT/HCPCS: 87880; 99202; G0463; U0003

== ENCOUNTER 2021-05-28 15:45 | Emergency (ER) | payer BC, SELFPAY ==
[2021-05-28 16:31] VITALS: BP 128/75; PULSE 94; RESP 16; TEMP 37.1; O2SAT 99; BMI 31.1
[2021-05-28 16:37] LABS: UTC Strep Screen (Rapid) Positive (Negative)
[2021-05-28 16:59] VITALS: BP 128/75; PULSE 94; RESP 16; TEMP 37.1
--- NOTE | 2021-05-28 17:20 | HMH.EDUTC ---
[facility] [place] Clinical Impression: Strep throat Disposition: Home, Self-Care Condition on Discharge: Good Instructions: Strep Throat, DI for Strep Throat Additional Instructions: Drink plenty of fluids. Take tylenol or ibuprofen for pain or fever. Take the medications as directed. Follow up with your regular doctor. GO TO THE ER FOR ANY WORSENING SYMPTOMS Throw your tooth brush away and get a new one. Prescriptions: Brompheniramine/Pseudoephed/Dm [Bromfed Dm Cough Syrup] 5 ml PO Q6HP PRN #240 ml PRN Reason: Cough Transmission Status: Pending to [facility] Amoxicillin [Amoxicillin 500mg Tab] 500 mg PO TID 10 Days #30 tab Transmission Status: Pending to [facility] Referrals: Florencio Hutchison MD [Primary Care Provider] - Forms: Work/School Release Time of Disposition: 17:31 Medical Decision Making - Medical Records Medical records reviewed: No: I reviewed the patient's medical records. - Anselmo Inquiry Pt receiving controlled substance: No Vital Signs: 05/28/21 16:31 05/28/21 16:59 Temperature 98.7 F 98.7 F Temperature Source Oral Pulse Rate 94 H Pulse Rate [Left] 94 H Respiratory Rate 16 16 Blood Pressure 128/75 Blood Pressure [Right Arm] 128/75 Blood Pressure Mean [Right Arm] 92 02 Sat by Pulse Oximetry 99 - Lab Data Lab results reviewed: Yes: I reviewed the patient's lab results. Lab Results 05/28/21 16:31: Strep Scn Rapid Clinic Positive A [facility] [place] - General Stated complaint: poss strep throat Time Seen by Provider: 05/28/21 17:20 Mode of Arrival: Ambulatory Source of Information: Patient Limitations: No Limitations Description of Symptoms (Recalled from Triage Doc. by RN): pt c/o sore throat and body aches since this am. HEENT Symptoms (Recalled from RN notes): Yes (sore throat) Resp Symptoms (Recalled from RN notes): No Skin Symptoms (Recalled from RN notes): No MS Symptoms (Recalled from RN notes): No Functional Status (Recalled from RN notes): wnl - History of Present Illness Provider Complaint: She c/o sore throat, body aches and feeling bad for the past 2 days. - Related Data Previous Rx's Medication Instructions Recorded cephALEXin [cephALEXin 500mg 500 mg PO BID 10 Days #20 cap 10/27/20 capsule*] Amoxicillin [Amoxicillin 500mg Tab] 500 mg PO TID 10 Days #30 tab 05/28/21 Brompheniramine/Pseudoephed/Dm 5 ml PO Q6HP PRN #240 ml 05/28/21 [Bromfed Dm Cough Syrup] Allergies Allergy/AdvReac Type Severity Reaction Status Date / Time No Known Allergies Allergy Verified 04/17/20 17:19 - Worker's Comp Is this a Worker's Comp case?: No [facility] History - Hepatitis A Screen Drug use history?: No High risk sexual behaviors?: No History of sexually transmitted infection?: No Currently employed?: No Childcare worker?: No Do you have indoor plumbing?: Yes Do you have electricity?: Yes Attestation statement:: This patient has been screened for Hepatitis A risk factors. I have reviewed the patient's past medical history: Yes Medical History: Denies:: Seizures Other Medical History: Reports: Anemia. Denies: Blood Transfusion Reaction Other Surgeries: Yes: No Previous Surgery, Hernia Repair, Other. No: Amputation: No Fractures: No Comment: 1997- Umbilical hernia repair. 2018- surgery on her back to remove a Lipoma - Social History Smoking Status: Never smoker Alcohol Intake: never Substance Use Type: denies use Occupational Status: other Housing: house Household Members: significant other Family Hx:: Other Comment: Douglas LINN Obtained: Yes All systems reviewed & no additional complaints - Constitutional Constitutional: Reports chills, Reports fever(s), Reports poor appetite, Reports malaise - Eyes Eyes: Denies eye discharge - ENT Ears, Nose, Mouth, and Throat: Reports as per HPI - Cardiovascular Cardiovascular: Denies chest pain - Respiratory Respiratory: Denies ches
== END 2021-05-28 17:41 | disposition home or self-care (01) ==
PROVIDERS: Emergency Provider Nurse Practitioner Family; PCP Family Medicine
DX: J02.0 Streptococcal pharyngitis (principal)
CPT/HCPCS: 87880; 99202; G0463

== ENCOUNTER 2021-09-18 16:15 | Emergency (ER) | payer BC, SELFPAY ==
[2021-09-18 17:25] VITALS: BP 119/65; PULSE 108; RESP 20; TEMP 37.7; O2SAT 97; BMI 29.9
--- NOTE | 2021-09-18 17:36 | HMH.EDUTC ---
[facility] [place] Disposition Clinical Impression: Strep throat Disposition: Home, Self-Care Condition on Discharge: Good Instructions: Strep Throat, DI for Strep Throat Additional Instructions: *Monitor Temp, Over the counter Motrin or Tylenol as directed/as needed Tylenol every 4 hours and Motrin every 6 hours (as long as your family doctor has told you that you can take it) for fever or pain. and straight to ER if unable to lower temp less than 101.0 after medication given *Warm salt water gargles may help to soothe the throat *Throat Lozenges *Warm fluids like tea with honey may help to soothe the throat *Sleep elevated *Humidifier/Vaporizer *If you did not take Penicillin shot or was unable to, start taking antibiotic immediately and make sure that you take it for the FULL length of time although you should start to feel better in 24-48 hours *change toothbrush and toothpaste 24-48 hours after starting to take antibiotics so you do not reinfect yourself Monitor Temp. Tylenol and/or Ibuprofen as needed. ER if fever is no less than 101 despite alternating Tylenol and Ibuprofen * Encourage fluids, water, Gatorade, powerade, pedialyte if infant/toddler/or child *Cold fluids, popsicles and ice cream may feel good on his throat Follow up IMMEDIATELY for new or worsening symptoms or no Noticeable improvement over the next 48-72 hours. 911 for difficulty breathing or swallowing Prescriptions: Amoxicillin [Amoxicillin 500mg Cap] 500 mg PO TID #30 cap Transmission Status: Received by [facility] Referrals: Jesica Palomino APRN [Primary Care Provider] - As needed Forms: Work/School Release Time of Disposition: 17:50 Medical Decision Making - Anselmo Inquiry Pt receiving controlled substance: No Anselmo was queried for this patient: No Vital Signs: 09/18/21 17:25 Temperature 99.8 F H Temperature Source Oral Pulse Rate [Left] 108 H Respiratory Rate 20 Blood Pressure [Right Arm] 119/65 Blood Pressure Mean [Right Arm] 83 02 Sat by Pulse Oximetry 97 - Lab Data Lab results reviewed: Yes: I reviewed the patient's lab results. Lab Results 09/18/21 17:36: Strep Scn Rapid Clinic Positive A 09/18/21 17:53: Influenza Type A Ag Negative, Influenza Type B Ag Negative [facility] [place] HPI - General Stated complaint: throat Time Seen by Provider: 09/18/21 17:36 Mode of Arrival: Ambulatory Source of Information: Patient Limitations: No Limitations Description of Symptoms (Recalled from Triage Doc. by RN): pt c/o a sore throat, ears aching and BHARDWAJ since last night. 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 - Related Data Previous Rx's Medication Instructions Recorded cephALEXin [cephALEXin 500mg 500 mg PO BID 10 Days #20 cap 10/27/20 capsule*] Amoxicillin [Amoxicillin 500mg Tab] 500 mg PO TID 10 Days #30 tab 05/28/21 Brompheniramine/Pseudoephed/Dm 5 ml PO Q6HP PRN #240 ml 05/28/21 [Bromfed Dm Cough Syrup] Amoxicillin [Amoxicillin 500mg 500 mg PO TID #30 cap 09/18/21 Cap] Allergies Allergy/AdvReac Type Severity Reaction Status Date / Time No Known Allergies Allergy Verified 04/17/20 17:19 - Worker's Comp Is this a Worker's Comp case?: No [facility] History - Hepatitis A Screen Drug use history?: No High risk sexual behaviors?: No History of sexually transmitted infection?: No Currently employed?: No Childcare worker?: No Do you have indoor plumbing?: Yes Do you have electricity?: Yes Attestation statement:: This patient has been screened for Hepatitis A risk factors. I have reviewed the
[2021-09-18 17:39] LABS: UTC Strep Screen (Rapid) Positive (Negative)
[2021-09-18 17:53] LABS: UTC Influenza A Antigen Negative (Negative)
[2021-09-18 17:54] LABS: UTC Influenza B Antigen Negative (Negative)
[2021-09-18 18:01] VITALS: BP 119/65; PULSE 108; RESP 20; TEMP 37.7
== END 2021-09-18 18:03 | disposition home or self-care (01) ==
PROVIDERS: Emergency Provider Nurse Practitioner; PCP Nurse Practitioner Family
DX: J02.0 Streptococcal pharyngitis (principal)
CPT/HCPCS: 87804; 87880; 99212; G0463

== ENCOUNTER 2021-09-21 09:05 | Emergency (ER) | payer BC, SELFPAY ==
--- NOTE | 2021-09-21 09:31 | HMH.EDUTC ---
[facility] [place] Clinical Impression: Strep throat, Blister of lip Disposition: Home, Self-Care Condition on Discharge: Good Instructions: Strep Throat, DI for Strep Throat Additional Instructions: Drink plenty of fluids. Take tylenol or ibuprofen for pain or fever. Take the medications as directed. Follow up with your regular doctor. GO TO THE ER FOR ANY WORSENING SYMPTOMS Stop the antibiotics that you are on and start the new one. Prescriptions: Acyclovir 400 mg PO TID 7 Days #21 tab Transmission Status: [facility] methylPREDNISolone [Medrol] 4 mg PO DIRECTED 6 Days #21 packet Transmission Status: [facility] Cefdinir [Omnicef 300mg Capsule] 300 mg PO BID #20 cap Transmission Status: [facility] Acyclovir [Zovirax 5% ointment 5gm] 1 applicatio TP 5XDAY 4 Days #5 gm Transmission Status: [facility] Referrals: Brit Hanson MD [Primary Care Provider] - Time of Disposition: 10:36 Medical Decision Making - Medical Records Medical records reviewed: No: I reviewed the patient's medical records. - Anselmo Inquiry Pt receiving controlled substance: No Vital Signs: 09/21/21 09:32 09/21/21 10:31 Temperature 98 F 98 F Temperature Source Oral Pulse Rate 86 Pulse Rate [Left] 86 Respiratory Rate 14 14 Blood Pressure 140/81 Blood Pressure [Right Arm] 140/81 Blood Pressure Mean [Right Arm] 100 02 Sat by Pulse Oximetry 97 [facility] [place] - General Stated complaint: mouth/nose blisters, strep pos 09/18 Time Seen by Provider: 09/21/21 09:31 - History of Present Illness Provider Complaint: She states that she was diagnosed with strep throat 4 days ago. She was started on amoxicillin. She is back today with blisters on her lips and inside of her nose. Her throat is better though. - Related Data Previous Rx's Medication Instructions Recorded cephALEXin [cephALEXin 500mg 500 mg PO BID 10 Days #20 cap 10/27/20 capsule*] Amoxicillin [Amoxicillin 500mg Tab] 500 mg PO TID 10 Days #30 tab 05/28/21 Brompheniramine/Pseudoephed/Dm 5 ml PO Q6HP PRN #240 ml 05/28/21 [Bromfed Dm Cough Syrup] Amoxicillin [Amoxicillin 500mg 500 mg PO TID #30 cap 09/18/21 Cap] Acyclovir 400 mg PO TID 7 Days #21 tab 09/21/21 Acyclovir [Zovirax 5% ointment 5gm] 1 applicatio TP 5XDAY 4 Days #5 gm 09/21/21 Cefdinir [Omnicef 300mg Capsule] 300 mg PO BID #20 cap 09/21/21 methylPREDNISolone [Medrol] 4 mg PO DIRECTED 6 Days #21 09/21/21 packet Allergies Allergy/AdvReac Type Severity Reaction Status Date / Time No Known Allergies Allergy Verified 04/17/20 17:19 [facility] History - Hepatitis A Screen Attestation statement:: This patient has been screened for Hepatitis A risk factors. I have reviewed the patient's past medical history: Yes Medical History: Denies:: Seizures Other Medical History: Reports: Anemia. Denies: Blood Transfusion Reaction Other Surgeries: Yes: No Previous Surgery, Hernia Repair, Other. No: Amputation: No Fractures: No Comment: 1997- Umbilical hernia repair. 2018- surgery on her back to remove a Lipoma - Social History Smoking Status: Never smoker Alcohol Intake: never Substance Use Type: denies use Occupational Status: other Housing: house Household Members: significant other Family Hx:: Other Comment: Douglas LINN Obtained: Yes All systems reviewed & no additional complaints - Constitutional Constitutional: Reports as per HPI - Eyes Eyes: Denies eye discharge - ENT Ears, Nose, Mouth, and Throat: Reports as per HPI - Cardiovascular Cardiovascular: Denies chest pain - Respiratory Respiratory: Denies chest congestion, Reports cough Physical Exam - General General appearance: alert, in no apparent distress - Head Head exam: atraumatic, normocephalic, normal inspection - Eye Eye exam: Present: normal appearance, PERRL, EOMI -
[2021-09-21 09:32] VITALS: BP 140/81; PULSE 86; RESP 14; TEMP 36.6; O2SAT 97; BMI 28.8
[2021-09-21 10:31] VITALS: BP 140/81; PULSE 86; RESP 14; TEMP 36.6
== END 2021-09-21 10:32 | disposition home or self-care (01) ==
PROVIDERS: Emergency Provider Nurse Practitioner Family; PCP Family Medicine
DX: J02.0 Streptococcal pharyngitis (principal); S00.521A Blister (nonthermal) of lip, initial encounter
CPT/HCPCS: 99212; G0463

== ENCOUNTER → 2021-10-30 16:21 | Outpatient (CLI) | payer BC, SELFPAY ==
[2021-10-30 18:35] LABS: HCG,Quantitative 22324 mIU/ml (0-5.42)
== END ==
PROVIDERS: Visit Provider Nurse Practitioner Obstetrics & Gynecology
DX: N92.6 Irregular menstruation, unspecified (principal)
CPT/HCPCS: 36415; 84702

== ENCOUNTER → 2021-11-22 12:00 | Outpatient (CLI) | payer BC, SELFPAY ==
[2021-11-22 12:44] LABS: Basophils % 0.3 % (0.1-2.0); Eosinophils # 0.1 K/mm3 (0.0-0.4); Eosinophils % 0.8 % (0.1-12.0); Hematocrit 35.4 % (37.0-47.0); Hemoglobin 12.5 g/dL (12.2-16.2); Lymphocytes # 2.2 K/mm3 (0.7-4.5); Lymphocytes % 22.8 % (10-50); Mean Corpuscular HGB Conc 35.2 g/dL (31.8-35.4); Mean Corpuscular Hemoglobin 28.5 pg (27.0-31.2); Mean Corpuscular Volume 80.8 fl (81-99); Mean Platelet Volume 7.3 fl (7.4-10.4); Monocytes # 0.3 K/mm3 (0.1-1.0); Monocytes % 3.2 % (1.7-9.3); Neutrophils # 6.9 K/mm3 (1.8-7.8); Platelet Count 277 K/mm3 (142-424); Red Blood Count 4.38 M/mm3 (4.20-5.40); Red Cell Distribution Width 13.4 % (11.5-17.5); White Blood Count 9.5 K/mm3 (4.8-10.8)
--- NOTE | 2021-11-22 12:52 | US_ITS ---
FINAL REPORT TECHNIQUE: Sonographic images of the pelvis were obtained. CLINICAL HISTORY: US OB Before 14 wks for DATES/Confirmation FINDINGS: The uterus is anteverted and anteflexed. Within the endometrial cavity, there is a gestational sac. There is a pole. [place]-rump length measures 2.25 cm which correlates to a 9 weeks 0 days gestation. Cardiac activity is present. Heart rate measures 160 bpm. There is a normal-appearing surrounding the double decidual reaction. The myometrium and cervix are otherwise unremarkable. The right ovary measures 3.4 x 2.2 x 1.7 cm. There is a hypoechoic 1.6 cm right ovarian lesion likely a hemorrhagic follicle.. The left ovary measures 1.5 x 1.4 x 0.9 cm. It is normal. Color imaging to the ovaries is normal. There is no free fluid. IMPRESSION: Single, living, intrauterine gestation with an average ultrasound age of 9 weeks 0 days. Reviewed, Interpreted and Dictated by Dang Maurice MD Transcribed by Martin Nassar Authenticated by Dang Maurice MD on 11/22/2021 04:58:31 PM [facility]
[2021-11-23 05:46] LABS: HSV 2 IgG, Type Spec <0.91 index (0.00-0.90); Rubella Antibodies, IgG 6.77 index (Immune >0.99)
[2021-11-23 06:12] LABS: HIV Screen 4th Generation wRfx Non Reactive (Non Reactive); Hepatitis B Surface Antigen Negative (Negative); Hepatitis C Antibody <0.1 s/co ratio (0.0-0.9)
[2021-11-23 09:23] LABS: Rapid Plasma Reagin Ab Titer Non Reactive (NonRea<1:1)
== END ==
PROVIDERS: PCP Family Medicine; Visit Provider Nurse Practitioner Obstetrics & Gynecology
DX: O26.841 Uterine size-date discrepancy, first trimester (principal)
CPT/HCPCS: 36415; 76801; 85025; 86592; 86695; 86703; 86762; 86790; 86850; 87340; 87380; G0432

== ENCOUNTER → 2021-12-16 15:01 | Outpatient (CLI) | payer BC, SELFPAY | PROVIDERS: PCP Family Medicine; Visit Provider Nurse Practitioner Obstetrics & Gynecology | DX: Z34.90 Encounter for supervision of normal pregnancy, unspecified, unspecified trimester (principal) ==

== ENCOUNTER 2021-12-18 16:23 | Emergency (ER) | payer BC, SELFPAY ==
--- NOTE | 2021-12-18 16:55 | HMH.EDUTC ---
[facility] [place] Disposition Clinical Impression: Viral syndrome Pharyngitis Qualifiers: Pharyngitis/tonsillitis etiology: unspecified etiology Qualified Code(s): J02.9 - Acute pharyngitis, unspecified Qualifiers: Weeks of gestation: 12 weeks Qualified Code(s): Z3A.12 - 12 weeks gestation of Disposition: Home, Self-Care Condition on Discharge: Good Instructions: DI for Pharyngitis/Tonsillopharyngitis -- Adult, Preventing the Spread of Coronavirus Discharge Instructions Additional Instructions: Drink plenty of fluids. Take tylenol for pain or fever. Follow up with your regular doctor. Follow up with your blaster helper doctor. GO TO THE ER FOR ANY WORSENING SYMPTOMS Quarantine until you know the results of your covid-19 test. Notify your school or workplace of your results and follow their instructions regarding return to work/school. Referrals: Brit Hanson MD [Primary Care Provider] - Time of Disposition: 17:00 Medical Decision Making - Medical Records Medical records reviewed: No: I reviewed the patient's medical records. - Anselmo Inquiry Pt receiving controlled substance: No Vital Signs: 12/18/21 16:58 12/18/21 17:05 Temperature 98.4 F 98.4 F Temperature Source Oral Pulse Rate 125 H Pulse Rate [Left Radial] 125 H Respiratory Rate 19 19 Blood Pressure 132/76 Blood Pressure [Right Arm] 132/76 Blood Pressure Mean [Right Arm] 94 02 Sat by Pulse Oximetry 99 - Lab Data Lab results reviewed: Yes: I reviewed the patient's lab results. Lab Results 12/18/21 17:02: Group A Strep Rapid Negative Orders (Tests/Meds): ORDERS Category Date Time Status Full Resp Panel w/COVID ([facility]) Routine Lab 12/18/21 16:39 Received Strep Screen Confirmation Stat Micro 12/18/21 17:02 Received [facility] [place] HPI - General Stated complaint: covid test Time Seen by Provider: 12/18/21 16:55 - History of Present Illness Provider Complaint: She states that since last night she has began to feel bad, have body aches, decreased sense of smell, and run a fever up to 100.7. Several of her family members have similar symptoms. Onset (ago): hour(s) - Related Data Home Medications Medication Instructions Recorded Confirmed kamini goldstein,fru-uced-gayeu 1 tab PO DAILY 11/18/21 12/16/21 Previous Rx's Medication Instructions Recorded valacyclovir 1 gram tablet 1,000 mg PO DAILY #30 tab 10/07/21 Allergies Allergy/AdvReac Type Severity Reaction Status Date / Time No Known Allergies Allergy Verified 12/16/21 13:59 [facility] History - Hepatitis A Screen Attestation statement:: This patient has been screened for Hepatitis A risk factors. I have reviewed the patient's past medical history: Yes Medical History: Denies:: Seizures Other Medical History: Reports: Anemia. Denies: Blood Transfusion Reaction Other Surgeries: Yes: No Previous Surgery, , Hernia Repair, Other Amputation: No Fractures: No Comment: 1997- Umbilical hernia repair. 2018- surgery on her back to remove a Lipoma - Social History Smoking Status: Never smoker Alcohol Intake: never Substance Use Type: denies use Occupational Status: other Housing: house Household Members: significant other Family Hx:: Other Comment: Douglas LINN Obtained: Yes All systems reviewed & no additional complaints - Constitutional Constitutional: Reports as per HPI - Eyes Eyes: Denies eye discharge - ENT Ears, Nose, Mouth, and Throat: Reports as per HPI - Cardiovascular Cardiovascular: Denies chest pain - Respiratory Respiratory: Denies chest congestion, Reports cough Physical Exam - General General appearance: alert, in no apparent distress - Head Head exam: atraumatic, normocephalic, normal inspection - Eye Eye exam: Present: normal appearance, PERRL, EOMI - ENT ENT exam: Present: mucous membranes moist, normal external ear exam - Expanded ENT Exam TM/Canal exam: Bilateral
[2021-12-18 16:58] VITALS: BP 132/76; PULSE 125; RESP 19; TEMP 36.9; O2SAT 99; BMI 29.8
[2021-12-18 17:05] VITALS: BP 132/76; PULSE 125; RESP 19; TEMP 36.9
[2021-12-18 17:28] LABS: Strep Scrn Group A (Rapid) Negative (Negative)
[2021-12-18 19:32] LABS: Adenovirus,PCR Not Detected (NotDetected); Bordetella Pertussis Not Detected (NotDetected); Chlamydophila Pneumoniae, PCR Not Detected (NotDetected); Coronavirus 229E Not Detected (NotDetected); Coronavirus NL63 Not Detected (NotDetected); Coronavirus OC43 Not Detected (NotDetected); Coronovirus HKU1,PCR Not Detected (NotDetected); Human Metapneumovirus Not Detected (NotDetected); Influenza A, PCR Not Detected (NotDetected); Influenza AH1, 2009 Not Detected (NotDetected); Influenza AH1, PCR Not Detected (NotDetected); Influenza AH3,PCR Not Detected (NotDetected); Influenza B, PCR Not Detected (NotDetected); Mycoplasma Pneumoniae, PCR Not Detected (NotDetected); Parainfluenza 1, PCR Not Detected (NotDetected); Parainfluenza 2, PCR Not Detected (NotDetected); Parainfluenza 3, PCR Not Detected (NotDetected); Parainfluenza 4, PCR Not Detected (NotDetected); Respiratory Syncytial Virus Not Detected (NotDetected); Rhinovirus/Enterovirus Not Detected (NotDetected)
[2021-12-18 22:05] LABS: Coronavirus 19, PCR Detected (NotDetected)
== END 2021-12-18 17:07 | disposition home or self-care (01) ==
PROVIDERS: Emergency Provider Nurse Practitioner Family; PCP Family Medicine
DX: B34.9 Viral infection, unspecified; O26.891 Other specified pregnancy related conditions, first trimester; Z3A.12 12 weeks gestation of pregnancy
CPT/HCPCS: 87430; 87581; 87632; 87798; 99212; C9803; G0463; U0003; U0005

== ENCOUNTER → 2022-03-29 08:39 | Outpatient (CLI) | payer BC, SELFPAY ==
[2022-03-29 09:10] LABS: Glucose,Fasting 86 mg/dl (74-100)
[2022-03-29 09:33] LABS: Basophils % 0.3 % (0.1-2.0); Eosinophils # 0.1 K/mm3 (0.0-0.4); Eosinophils % 1.2 % (0.1-12.0); Hematocrit 34.8 % (37.0-47.0); Lymphocytes # 1.6 K/mm3 (0.7-4.5); Lymphocytes % 15.1 % (10-50); Mean Corpuscular HGB Conc 34.6 g/dL (31.8-35.4); Mean Corpuscular Hemoglobin 31.7 pg (27.0-31.2); Mean Corpuscular Volume 91.6 fl (81-99); Mean Platelet Volume 8.4 fl (7.4-10.4); Monocytes # 0.5 K/mm3 (0.1-1.0); Neutrophils # 8.4 K/mm3 (1.8-7.8); Neutrophils % 78.4 % (37.0-80.0); Platelet Count 229 K/mm3 (142-424); Red Cell Distribution Width 15.2 % (11.5-17.5); White Blood Count 10.7 K/mm3 (4.8-10.8)
[2022-03-29 11:01] LABS: Glucose 1 Hour 156 mg/dL (74-100)
== END ==
PROVIDERS: PCP Family Medicine; Visit Provider Nurse Practitioner Obstetrics & Gynecology
DX: Z34.90 Encounter for supervision of normal pregnancy, unspecified, unspecified trimester (principal)
CPT/HCPCS: 36415; 82951; 85025

== ENCOUNTER → 2022-04-05 08:10 | Outpatient (CLI) | payer BC, SELFPAY ==
[2022-04-05 09:34] LABS: Glucose,Fasting 88 mg/dl (74-100)
[2022-04-05 11:29] LABS: Glucose 1 Hour 157 mg/dL (74-100); Glucose 2 Hour 122 mg/dL (74-100)
[2022-04-05 13:23] LABS: Glucose 3 Hour 116 mg/dL (74-100)
== END ==
PROVIDERS: PCP Family Medicine; Visit Provider Nurse Practitioner Obstetrics & Gynecology
DX: Z34.90 Encounter for supervision of normal pregnancy, unspecified, unspecified trimester (principal); Z3A.24 24 weeks gestation of pregnancy
CPT/HCPCS: 36415; 82951

== ENCOUNTER 2022-05-23 08:11 | Emergency (ER) | payer BC, SELFPAY ==
[2022-05-23 08:25] VITALS: BP 113/70; PULSE 116; RESP 18; TEMP 36.8; O2SAT 98; BMI 30.9
--- NOTE | 2022-05-23 08:36 | EXP.UTC ---
Discharge Plan Disposition Patient Disposition: Home, Self-Care Condition: Good Prescriptions Prescriptions: No Action ferrous fumarate 325 mg (106 mg iron) tablet 325 mg PO DAILY Qty: 30 11RF prenat.vits,kamini,wpz-ydey-qceak Tablet 1 tab PO DAILY Referrals Follow up/Referrals: Brit Hanson MD [Primary Care Provider] - See instructions Activity Restrictions/Add. Instructions Additional Instructions/Restrictions: Drink plenty of fluids. Take tylenol or ibuprofen for pain or fever. Take the medications as directed. Follow up with your regular doctor. GO TO THE ER FOR ANY WORSENING SYMPTOMS Clinical Impressions Clinical Impression: Viral syndrome Stand Alone Forms Stand Alone Forms: Work/School Release Instructions Patient Instructions: DI for Viral Syndrome Discharge ED Provider[place] Frankie Giral[place] [facility] [place] General Stated complaint: sore throat, ear pain, vomiting Time Seen by Provider: 05/23/22 08:35 History of Present Illness Provider Complaint: She states that for the past 2 days she has had body aches, chills, low grade fever and she has felt bad. Related Data Home Medications Medication Instructions Recorded Confirmed prenat.vits,kamini,tpm-wieq-yrgrq 1 tab PO DAILY 11/18/21 05/19/22 Previous Rx's Medication Instructions Recorded ferrous fumarate 325 mg (106 mg 325 mg PO DAILY #30 tabs 02/10/22 iron) tablet Allergies Allergy/AdvReac Type Severity Reaction Status Date / Time No Known Allergies Allergy Verified 05/19/22 08:45 [facility] Surgical History History of section Social History Smoking Status: Never smoker alcohol intake: never counseling provided: none substance use type: denies use current occupational status: other Travel in the last 8 weeks: None household members: significant other housing: house ROS Obtained: Yes All systems reviewed & no additional complaints except as documented Constitutional Constitutional: Reports chills and Reports fever(s) Eyes Eyes: Denies eye discharge ENT Ears, Nose, Mouth, and Throat: Reports as per HPI Cardiovascular Cardiovascular: Denies chest pain Respiratory Respiratory: Denies shortness of breath, Denies chest congestion, Reports cough, Denies stridor and Denies wheezing Gastrointestinal Gastrointestingal: Reports nausea; Denies abdominal pain, constipation, cramping, diarrhea or vomiting Musculoskeletal Musculoskeletal: Denies arthralgias Integumentary/Breasts Skin/Breast: Denies rash Neurologic Neurologic: Denies paresthesias Allergic/Immunologic Allergic/Immunologic: Denies wheezing Physical Exam General General appearance: alert and in no apparent distress Head Head exam: atraumatic, normocephalic and normal inspection Eye Eye exam: Present normal appearance, PERRL and EOMI ENT ENT exam: Present normal exam, normal oropharynx, mucous membranes moist, TM's normal bilaterally and normal external ear exam Neck Neck exam: Present normal inspection, full ROM and trachea midline; Absent meningismus or lymphadenopathy Chest Chest inspection: Present normal inspection and symmetric chest wall rise; Absent tenderness Respiratory Respiratory exam: Present normal lung sounds bilaterally; Absent respiratory distress Cardiovascular Cardiovascular exam: Present regular rate and normal rhythm; Absent JVD Abdominal Exam Abdominal exam: Present soft and normal bowel sounds; Absent distention, tenderness or guarding Extremities Exam Extremities exam: Present normal inspection, full ROM and normal capillary refill; Absent calf tenderness Back Exam Back exam: Present normal inspection; Absent tenderness Neurological Exam Neurological exam: Present alert and oriented X3 Psychiatric Psychiatric exam: Present normal affect and normal mood Skin Skin exam: Present warm, dry, intact and n
[2022-05-23 08:47] LABS: UTC Influenza A Antigen Negative (Negative); UTC Influenza B Antigen Negative (Negative); UTC Strep Screen (Rapid) Negative (Negative)
[2022-05-23 08:51] VITALS: BP 113/70; PULSE 116; RESP 18; TEMP 36.8; O2SAT 98
[2022-05-23 09:17] LABS: Adenovirus,PCR Not Detected (NotDetected); Bordetella Pertussis Not Detected (NotDetected); Chlamydophila Pneumoniae, PCR Not Detected (NotDetected); Coronavirus 19, PCR Not Detected (NotDetected); Coronavirus 229E Not Detected (NotDetected); Coronavirus NL63 Not Detected (NotDetected); Coronavirus OC43 Not Detected (NotDetected); Coronovirus HKU1,PCR Not Detected (NotDetected); Human Metapneumovirus Not Detected (NotDetected); Influenza A, PCR Not Detected (NotDetected); Influenza AH1, 2009 Not Detected (NotDetected); Influenza AH1, PCR Not Detected (NotDetected); Influenza AH3,PCR Not Detected (NotDetected); Influenza B, PCR Not Detected (NotDetected); Mycoplasma Pneumoniae, PCR Not Detected (NotDetected); Parainfluenza 1, PCR Not Detected (NotDetected); Parainfluenza 2, PCR Not Detected (NotDetected); Parainfluenza 3, PCR Not Detected (NotDetected); Parainfluenza 4, PCR Not Detected (NotDetected); Respiratory Syncytial Virus Not Detected (NotDetected); Rhinovirus/Enterovirus Not Detected (NotDetected)
== END 2022-05-23 09:06 | disposition home or self-care (01) ==
PROVIDERS: Emergency Provider Nurse Practitioner Family; PCP Family Medicine
DX: J02.9 Acute pharyngitis, unspecified (principal); H92.09 Otalgia, unspecified ear; R11.10 Vomiting, unspecified; B34.9 Viral infection, unspecified
CPT/HCPCS: 87581; 87632; 87798; 87804; 87880; 99212; C9803; G0463; U0003; U0005

== ENCOUNTER → 2022-06-03 08:52 | Outpatient (CLI) | payer BC, SELFPAY | PROVIDERS: Visit Provider Nurse Practitioner Obstetrics & Gynecology | DX: Z34.90 Encounter for supervision of normal pregnancy, unspecified, unspecified trimester (principal); Z3A.34 34 weeks gestation of pregnancy | CPT/HCPCS: 86403 ==

== ENCOUNTER 2022-06-12 13:11 | Outpatient (CLI) | payer BC, SELFPAY ==
[2022-06-12 13:42] VITALS: BMI 32.1
[2022-06-12 13:43] VITALS: BP 132/83; PULSE 94; RESP 17; TEMP 36.7; O2SAT 97; BMI 32.1
== END 2022-06-12 14:29 | disposition home or self-care (01) ==
LOC: OBOUT 13:13 → OB 13:13
PROVIDERS: PCP Family Medicine; Visit Provider Obstetrics & Gynecology
DX: O36.8130 Decreased fetal movements, third trimester, not applicable or unspecified (principal); Z3A.37 37 weeks gestation of pregnancy
CPT/HCPCS: 59025; G0463

== ENCOUNTER → 2022-06-24 08:43 | Outpatient (CLI) | payer BC, SELFPAY ==
[2022-06-24 09:23] LABS: Basophils # 0.1 K/mm3 (0-0.2); Basophils % 0.5 % (0.1-2.0); Eosinophils # 0.1 K/mm3 (0.0-0.4); Eosinophils % 0.4 % (0.1-12.0); Hematocrit 36.5 % (37.0-47.0); Hemoglobin 12.5 g/dL (12.2-16.2); Lymphocytes # 2.2 K/mm3 (0.7-4.5); Lymphocytes % 18.6 % (10-50); Mean Corpuscular HGB Conc 34.3 g/dL (31.8-35.4); Mean Corpuscular Hemoglobin 29.9 pg (27.0-31.2); Mean Corpuscular Volume 87.1 fl (81-99); Mean Platelet Volume 9.2 fl (7.4-10.4); Monocytes # 0.5 K/mm3 (0.1-1.0); Monocytes % 4.6 % (1.7-9.3); Neutrophils # 8.8 K/mm3 (1.8-7.8); Neutrophils % 75.8 % (37.0-80.0); Platelet Count 281 K/mm3 (142-424); Red Blood Count 4.19 M/mm3 (4.20-5.40); Red Cell Distribution Width 15.1 % (11.5-17.5); White Blood Count 11.7 K/mm3 (4.8-10.8)
[2022-06-24 09:44] LABS: Alanine Aminotransferase 27 U/L (12-78); Albumin Level 3.1 g/dl (3.5-5.0); Albumin/Globulin Ratio 1.3 (1.1-1.8); Alkaline Phosphatase 201 U/L (38-126); Anion Gap 9.6 mEq/L (5-15); Aspartate Amino Transferase 43 U/L (14-36); Bilirubin,Total 0.5 mg/dl (0.2-1.3); Blood Urea Nitrogen 2 mg/dl (7-17); Calcium 9.2 mg/dl (8.4-10.2); Carbon Dioxide 22 mmol/L (22.0-30.0); Chloride 108 mmol/L (98-107); Estimated Glomerular Filt Rate 122 ml/min (>60); GFR (African American) 147 ML/MIN (>60); Globulin 2.3 g/dL (1.3-3.2); Glucose 77 mg/dl (74-100); Potassium 3.6 mmoL/L (3.5-5.1); Sodium 136 mmol/L (136-145); Total Protein,Serum 5.4 g/dl (6.3-8.2)
== END ==
PROVIDERS: PCP Family Medicine; Visit Provider Nurse Practitioner Obstetrics & Gynecology
DX: Z34.90 Encounter for supervision of normal pregnancy, unspecified, unspecified trimester (principal); Z3A.34 34 weeks gestation of pregnancy
CPT/HCPCS: 36415; 80053; 85025

== ENCOUNTER 2022-06-26 04:56 | Inpatient (IN) | payer BC, SELFPAY ==
[2022-06-26] VITALS (13 sets, daily range): BP systolic 131–152; BP diastolic 69–89; PULSE 80–89; RESP 14–19; TEMP 36.2–36.8; O2SAT 98–100; BMI 33.2; BMI 37.1
[2022-06-26 05:55] LABS: Coronavirus 19, PCR Not Detected (NotDetected); Influenza A, PCR Not Detected (NotDetected); Influenza B, PCR Not Detected (NotDetected)
[2022-06-26 05:55] LABS: Microscopic, Urine URINE MICROSCOPIC (MICROSCOPIC)
[2022-06-26 06:08] LABS: Appearance,Urine CLEAR (Clear); Bilirubin,Urine Negative (Negative); Blood, Urine Negative (Negative); Color,Urine YELLOW (Yellow); Glucose,Urine (UA) Negative (Negative); Ketones,Urine TRACE (Negative); Leukocyte Esterase,Urine Negative (Negative); Nitrate,Urine Negative (Negative); PH,Urine 6.5 (5.0-8.5); Protein,Urine Negative (Negative); Specific Gravity, Urine <= 1.005 (1.005-1.030); Urobilinogen,Urine 0.2 EU/dl (0.2)
[2022-06-26 06:10] LABS: Chloride 110 mmol/L (98-107); Potassium 3.2 mmoL/L (3.5-5.1); Sodium 138 mmol/L (136-145)
[2022-06-26 06:13] LABS: Alanine Aminotransferase 29 U/L (12-78); Albumin/Globulin Ratio 1.2 (1.1-1.8); Alkaline Phosphatase 190 U/L (38-126); Anion Gap 11.2 mEq/L (5-15); Aspartate Amino Transferase 44 U/L (14-36); Bilirubin,Total 0.6 mg/dl (0.2-1.3); Blood Urea Nitrogen 2 mg/dl (7-17); Calcium 8.6 mg/dl (8.4-10.2); Carbon Dioxide 20 mmol/L (22.0-30.0); Creatinine Clearance Estimated 250 mL/min (50-200); Estimated Glomerular Filt Rate 150 ml/min (>60); GFR (African American) 182 ML/MIN (>60); Globulin 2.5 g/dL (1.3-3.2); Glucose 82 mg/dl (74-100); Total Protein,Serum 5.5 g/dl (6.3-8.2)
[2022-06-26 06:20] LABS: Amphetamine/Metha Screen,Urine Negative ng/ml (<1000)
[2022-06-26 06:21] LABS: Barbiturates Screen,Urine Negative ng/ml (<200); Benzodiazepines Screen,Urine Negative ng/ml (<200)
[2022-06-26 06:22] LABS: Cannabinoid Screen,Urine Negative ng/ml (<50)
[2022-06-26 06:22] LABS: Basophils # 0.1 K/mm3 (0-0.2); Eosinophils # 0.1 K/mm3 (0.0-0.4); Eosinophils % 0.8 % (0.1-12.0); Hemoglobin 12.2 g/dL (12.2-16.2); Lymphocytes % 21.8 % (10-50); Mean Corpuscular Hemoglobin 30.7 pg (27.0-31.2); Mean Corpuscular Volume 87.6 fl (81-99); Mean Platelet Volume 9.1 fl (7.4-10.4); Monocytes # 0.5 K/mm3 (0.1-1.0); Monocytes % 5.3 % (1.7-9.3); Neutrophils # 6.7 K/mm3 (1.8-7.8); Neutrophils % 71.1 % (37.0-80.0); Platelet Count 258 K/mm3 (142-424); Red Blood Count 3.99 M/mm3 (4.20-5.40); Red Cell Distribution Width 15.3 % (11.5-17.5); White Blood Count 9.4 K/mm3 (4.8-10.8)
[2022-06-26 06:23] LABS: Cocaine Screen,Urine Negative ng/ml (<300); Methadone Screen,Urine Negative ng/ml (<300)
[2022-06-26 06:24] LABS: Opiate Screen,Urine Negative ng/ml (<300)
[2022-06-26 06:25] LABS: Phencyclidine Screen,Urine Negative ng/ml (<25)
[2022-06-26 06:38] LABS: Bacteria,Urine Trace /lpf; WBC,Urine Occasional #/hpf (0-3)
--- NOTE | 2022-06-26 07:05 | EXP.ANES.CKL ---
[facility] Disclaimer: The information contained in this section may have been updated after the patient was seen, as this information can be updated by other users. Surgical History History of History of section Social History Smoking Status: Never smoker alcohol intake: never counseling provided: none substance use type: denies use current occupational status: employed Travel in the last 8 weeks: None household members: significant other housing: house [facility] Anesthesia Checklist Patient Identification Patient Identification: Arm Band and Verbal (Name & ) Structural Data Admitted From: Inpatient Planned Operative Procedure/s: C/S Consent for Planned Operative Procedure(s) Verified: Yes NPO Status Verified Time NPO: 00:00 Chart Verification Results Verified: CBC and BMP Additional verifications Patient : Yes Anesthesia Reactions: No Hx Blood Transfusions: No Blood Transfusion Reaction: No Airway Assessment C-Spine Mobility Assessed: Yes TMJ Mobility Assessed: Yes Dentition: Good Dentition Neurological Assessment Level of Consciousness: Awake Hx Seizures: No Numbness or tingling in extremities: No Anesthesia Plan Anesthesia Risk discussed: Yes Anesthesia Plan: Verified ASA Class: II Anesthesia Type: Spinal
[2022-06-26 08:04] LABS: Cord Blood PH 7.34 (7.35-7.45)
--- NOTE | 2022-06-26 08:34 | P.PNANES_ITS ---
[facility] Anesthesia Record Part I Anesthesia Record I Intake, IV Amount: 1,300 Estimated blood loss (mL): 800 Urine output (mL): 350 Blood Pressure: 133/85 SaO2: 99 Pulse Rate: 89 Respiratory Rate: 14 Temperature: 97.1 F Patient is:: Awake Stable to PACU at:: 08:32
--- NOTE | 2022-06-26 08:38 | EXP.OP.NOTE ---
Date of procedure: 06/26/22 Pre-op Diagnosis:: Previous section, term Post-op Diagnosis:: Previous section, term , uterine atony Procedure performed:: Repeat lower segment transverse section, B-samuels suture Surgeon:: Gregorio Paul MD Sole Leather Cutting Machine Operator(s):: Dr. Cash MECHANICAL ENGINEER:: Bill Brownlee Anesthesia: spinal Estimated blood loss (mL): 800 Clinical Note:: She is a 27-year-old 2 para 1 at 39 weeks gestational age. She had a previous section and as result of that was offered repeat lower segment transverse section at term. The risks and benefits of surgery were discussed with the patient prior to surgery. Operative findings:: She delivered a liveborn female child at 7:53 AM on the morning of June 26, 2022. The baby weighed 11 pounds and had Apgars of 8 at 1 minute and 9 at 5 minutes. pH was 7.34. The uterus was somewhat boggy after the surgery and as result of that I elected to perform a B-samuels suture. She also received Methergine and oxytocin. Operative note:: She was taken to the operating room where spinal anesthesia was found be adequate. She was prepped and draped in normal sterile fashion in the supine position. A Long catheter was in the bladder. A Pfannenstiel skin incision was made with knife then carried through to the underlying layer of fascia with cautery. The fascia was opened in the midline with cautery and extended laterally using Logan scissors. [place] clamps were applied to the superior aspect of the fascial incision which was tented up and the underlying rectus muscles dissected off using cautery. The [place] clamps were then applied to the inferior aspect of the fascial incision which in a similar fashion was tented up and the underlying rectus muscles dissected off using cautery. The rectus muscles were then in the midline, the peritoneum identified, and entered bluntly. An Christian retractor was then inserted into the abdominal cavity. Transverse incision was made through the uterine muscle above the bladder flap to the amnion. This incision was then extended superiorly and inferiorly using the fingers as traction. The amnion was entered sharply with knife. There was clear amniotic fluid. The 's head was then delivered atraumatically. There was thin meconium and I used a DeLee suction to suction the oropharynx and nasopharynx. This was followed by the anterior shoulder and the rest of the infant's body atraumatically. The oropharynx and nasopharynx were further DeLee suctioned. The was vigorous so we allowed the cord to continue to pulsate for approximately 1 minute. The cord was then doubly clamped and cut. The infant was then handed off to Dr. Singh who assigned Apgars of 8 at 1 minute and 9 at 5 minutes. We then obtained cord blood as well as cord pH. The pH was 7.34.. Using gentle traction on the cord and fundal massage I was able to easily deliver the placenta intact. It had a normal three-vessel cord. The uterus was then cleared of clots and debris . The uterine incision was then closed using running 0 Vicryl suture in a locked fashion. A second layer of the same suture was used to imbricate the first layer. The bladder peritoneum was then closed using running 2-0 Vicryl suture in a locked fashion. The uterus was somewhat boggy and since the was so large I elected perform a B-samuels suture. Using #1 Vicryl on a large protect point needle I took a large bite of the uterine wall superior to the incision. I then went over the top of the uterus and took 2 large bites posteriorly. I then came back over the front and took another bite anteriorly. The suture was then cinched down and tied. She received a dose of Methergine as well. The gutters and cul-de-sac were then cleared of clots and debris . Once again hemostasis was assured. The uterus was returned to the abdominal cavity and a large piece of Surgicel was placed along the uterine
--- NOTE | 2022-06-26 08:46 | EXP.HP ---
History of Present Illness *Admission Date: 06/26/22 *Reason for visit:: Repeat LS C\S, previous section *History of present illness: She is a 27-year-old 2 para 1 at 39 weeks gestational age. She has had a previous section for a large for gestational age and as result of that was offered repeat lower segment transverse section at term. It was felt that this baby was large as well. The risks and benefits of surgery were discussed with the patient prior to the surgery. [facility] Disclaimer: The information contained in this section may have been updated after the patient was seen, as this information can be updated by other users. Surgical History History of History of section Social History Smoking Status: Never smoker alcohol intake: never counseling provided: none substance use type: denies use current occupational status: employed Travel in the last 8 weeks: None household members: significant other housing: house Review of Systems Review of Systems Review of systems:: pertinent systems reviewed and negative unless documented below Meds Home Medications and Allergies Home Medications Medication Instructions Recorded Confirmed Type prenat.vits,kamini,wqw-pocv-wcinv 1 tab PO DAILY Supplement 11/18/21 06/26/22 History ferrous fumarate 325 mg (106 mg 325 mg PO DAILY Supplement 06/26/22 06/26/22 History iron) tablet New Prescriptions to Start Prescriptions: Allergies Allergy/AdvReac Type Severity Reaction Status Date / Time No Known Allergies Allergy Verified 06/24/22 08:11 Exam Data for Last 24 hours Vital signs and Labs for Last 24 Hours: Temp Pulse Resp BP 97.1 F L 89 14 133/85 06/26/22 08:35 06/26/22 08:35 06/26/22 08:35 06/26/22 08:35 Laboratory Results - last 24 hr 06/26/22 05:10: Urine Color Yellow, Urine Appearance Clear, Urine pH 6.5, Ur Specific [place] <= 1.005, Urine Protein Negative, Urine Glucose (UA) Negative, Urine Ketones Trace, Urine Blood Negative, Urine Nitrate Negative, Urine Bilirubin Negative, Urine Urobilinogen 0.2, Ur Leukocyte Esterase Negative, Urine RBC None, Urine WBC Occasional, Ur Squamous Epith Cells 3-5, Urine Bacteria Trace 06/26/22 05:10: Urine Opiates Screen Negative, Urine Methadone Screen Negative, Ur Barbituates Screen Negative, Ur Phencyclidine Scrn Negative, Ur Amphetamines Screen Negative, U Benzodiazepines Scrn Negative, Urine Cocaine Screen Negative, U Marijuana (THC) Screen Negative 06/26/22 05:25: SARS-CoV-2 (PCR) Not detected, Influenza A Untype (PCR) Not detected, Influenza Type B (PCR) Not detected 06/26/22 05:40: WBC 9.4, RBC 3.99 L, Hgb 12.2, Hct 35.0 L, MCV 87.6, MCH 30.7, MCHC 35.0, RDW 15.3, Plt Count 258, MPV 9.1, Neut % (Auto) 71.1, Lymph % (Auto) 21.8, [place] % (Auto) 5.3, Eos % (Auto) 0.8, Baso % (Auto) 1.0, Neut # (Auto) 6.7, Lymph # (Auto) 2.0, [place] # (Auto) 0.5, Eos # (Auto) 0.1, Baso # (Auto) 0.1 06/26/22 05:40: Sodium 138, Potassium 3.2 L, Chloride 110 H, Carbon Dioxide 20 L, Anion Gap 11.2, BUN 2 L, Creatinine 0.50 L, Estimated Creat Clear 250, Estimated GFR 150, Est GFR ( Amer) 182 D, Glucose 82, Calcium 8.6, Total Bilirubin 0.6, AST 44 H, ALT 29, Alkaline Phosphatase 190 H, Total Protein 5.5 L, Albumin 3.0 L, Globulin 2.5, Albumin/Globulin Ratio 1.2 06/26/22 05:40: Blood Type A Positive, Antibody Screen Negative 06/26/22 08:01: Cord ABG pH 7.34 L I & O for Last 24 hours: Intake & Output 06/23/22 06/24/22 06/25/22 06/26/22 11:59 11:59 11:59 11:59 Intake Total 1300 / 1300 Balance 1300 / 1300 Weight 203 lb Constitutional Constitutional: no acute distress *Routine HEENT Exam Head: Present normocephalic Eye: Present EOMI and PERRL ENT: Present mucous membranes moist *Routine Neck Exam Neck: Present supple; Absent lymphadenopathy
[2022-06-26 15:38] LABS: Microscopic,Cath URINE MICROSCOPIC (MICROSCOPIC)
[2022-06-26 18:35] LABS: Appearance,Urine/Cath CLEAR (Clear); Bilirubin,Cath Negative (Negative); Blood, Urine/Cath Negative (Negative); Color,Urine/Cath YELLOW (Yellow); Glucose,Urine/Cath (UA) Negative (Negative); Ketones,Urine/Cath TRACE (Negative); Leukocyte Esterase,Cath Negative (Negative); Nitrate,Cath Negative (Negative); PH,Urine/Cath 7.5 (5.0-8.5); Protein,Urine/Cath Negative (Negative); Urobilinogen,Cath 0.2 EU/dl (0.2)
[2022-06-27 00:27] VITALS: BP 125/76; PULSE 100; RESP 17; TEMP 36.7; O2SAT 98
[2022-06-27 04:00] VITALS: BP 133/79; PULSE 92; RESP 18; TEMP 36.7; O2SAT 98
[2022-06-27 06:33] LABS: Basophils % 0.3 % (0.1-2.0); Eosinophils # 0.1 K/mm3 (0.0-0.4); Eosinophils % 0.6 % (0.1-12.0); Hematocrit 26.4 % (37.0-47.0); Hemoglobin 9.1 g/dL (12.2-16.2); Lymphocytes # 1.9 K/mm3 (0.7-4.5); Lymphocytes % 17.7 % (10-50); Mean Corpuscular HGB Conc 34.7 g/dL (31.8-35.4); Mean Corpuscular Hemoglobin 30.5 pg (27.0-31.2); Mean Corpuscular Volume 88.1 fl (81-99); Mean Platelet Volume 8.7 fl (7.4-10.4); Monocytes # 0.5 K/mm3 (0.1-1.0); Monocytes % 4.7 % (1.7-9.3); Neutrophils # 8.3 K/mm3 (1.8-7.8); Neutrophils % 76.6 % (37.0-80.0); Platelet Count 245 K/mm3 (142-424); Red Cell Distribution Width 15.3 % (11.5-17.5); White Blood Count 10.9 K/mm3 (4.8-10.8)
--- NOTE | 2022-06-27 08:22 | P.PNANES_ITS ---
[facility] Anesthesia Record Part II Anesthesia Record Part II Discharge Time: 09:07 Destination: Surgical Day Care (OP Surgery) PACU nurse assessment reviewed?: Yes Patient Condition:: Good Anesthesia Complications:: None Swallowing reflex intact?: Yes Cyanosis?: No Blood Pressure: 143/89 Pulse Rate: 80 Temperature: 97.8 F Mental Status: Alert & Oriented Pain level:: 0 Nausea and/or vomitting:: None Intake, IV Amount: 0
[2022-06-27 08:23] VITALS: BP 143/89; PULSE 80; TEMP 36.6
[2022-06-27 09:31] VITALS: BP 127/74; PULSE 102; RESP 16; TEMP 36.6; O2SAT 98
--- NOTE | 2022-06-27 10:22 | EXP.ACUTE.PN ---
Subjective *Date: 06/27/22 *Time: 10:22 Interval history: POD # 1 s/p RLTCS Sitting comfortably in bedside chair. She is breast feeding. Pain is controlled. Appropriate lochia. Voiding without difficulty. Passing flatus. Denies fever/chills, chest pain and shortness of breath. Denies headaches and dizziness. She admits to continued lower extremity swelling. No calf pain. Medical Exam Vital signs and Labs for Last 24 Hours: Vital Signs Temp Pulse Pulse Resp BP BP Pulse Ox 06/27/22 04:00 98.1 F 92 H 18 133/79 98 06/27/22 00:27 98.1 F 100 H 17 125/76 98 06/26/22 20:00 97.7 F 85 18 136/70 98 06/26/22 18:53 18 06/26/22 18:14 98.1 F 18 138/69 06/26/22 15:37 18 06/27/22 08:23 97.8 F 80 143/89 H Intake and Output 06/26/22 06/27/22 06/27/22 23:59 07:59 15:59 Intake Total 0 / 0 Balance 0 / 0 Intake: Intake, Total IV Amount 0 / 0 Laboratory Results - last 24 hr 06/26/22 05:40: Blood Type A Positive, Antibody Screen Negative, Crossmatch (AHG) See Detail 06/26/22 07:35: Urine Color Yellow, Urine Appearance Clear, Urine pH 7.5, Ur Specific [place] 1.010, Urine Protein Negative, Urine Glucose (UA) Negative, Urine Ketones Trace, Urine Blood Negative, Urine Nitrate Negative, Urine Bilirubin Negative, Urine Urobilinogen 0.2, Ur Leukocyte Esterase Negative, Urine RBC None, Urine WBC None, Ur Squamous Epith Cells None, Urine Bacteria None 06/27/22 06:00: WBC 10.9 H, RBC 3.00 L, Hgb 9.1 L, Hct 26.4 L, MCV 88.1, MCH 30.5, MCHC 34.7, RDW 15.3, Plt Count 245, MPV 8.7, Neut % (Auto) 76.6, Lymph % (Auto) 17.7, [place] % (Auto) 4.7, Eos % (Auto) 0.6, Baso % (Auto) 0.3, Neut # (Auto) 8.3 H, Lymph # (Auto) 1.9, [place] # (Auto) 0.5, Eos # (Auto) 0.1, Baso # (Auto) 0.0 I & O for Labs for Last 24 Hours: Intake & Output 06/24/22 06/25/22 06/26/22 06/27/22 23:59 23:59 23:59 23:59 Intake Total 1300 / 1300 0 / 0 Balance 1300 / 1300 0 / 0 Weight 203 lb Head: Present atraumatic and normocephalic ENT: Present normal exam and mucous membranes moist Neck: Present normal inspection and full ROM Respiratory: Present CTA bilaterally and normal respiratory effort Cardiac: Present Reg Rate and Rhythm GI: Present soft; Absent distention or tenderness Comments:: Uterine fundus firm and below umbilicus. No significant drainage on bandage covering Pfannenstiel incision Rectal (female): Present deferred (female): Present deferred Extremities: Present full ROM and edema (+3 bilateral lower extremity edema); Absent calf tenderness Neuro: Present alert, awake, oriented x 3 and moves all extremities Assessment and Plan *Assessment and plan (1) with 39 completed weeks gestation: Status: Acute Category: Medical Code(s): Z3A.39 - 39 weeks gestation of (2) S/P : Status: Acute Category: Surgical Code(s): Z98.891 - History of uterine scar from previous surgery (3) Large for gestational age fetus affecting mother, antepartum, third trimester, single gestation: Status: Acute Category: Medical Code(s): O36.63X0 - Maternal care for excessive growth, third trimester, not applicable or unspecified (4) Acute blood loss anemia: Status: Acute Category: Medical Code(s): D62 - Acute posthemorrhagic anemia Plan Continue routine care Encouraged increased ambulation Venofer 200 mg IV x 1 dose Plan d/c home tomorrow
[2022-06-27 16:41] VITALS: BP 128/82; PULSE 101; RESP 16; TEMP 36.4; O2SAT 100
[2022-06-27 21:02] VITALS: BP 142/80; PULSE 88; RESP 18; TEMP 37; O2SAT 99
[2022-06-28 04:42] VITALS: BP 136/74; PULSE 106; RESP 18; TEMP 36.9; O2SAT 98
[2022-06-28 08:00] VITALS: BP 133/74; PULSE 96; RESP 18; TEMP 36.9; O2SAT 100
--- NOTE | 2022-06-28 12:29 | EXP.DC.SUM ---
General Admission date:: 06/26/22 Discharge date: 06/28/22 HPI HPI HPI: POD # 2 s/p RLTCS Resting comfortably in bed. Pain controlled. She is breast feeding. Light lochia. Voiding without difficulty. Passing flatus. Tolerating regular diet. Denies fever/chills, chest pain and shortness of breath. Denies headaches, vision changes. Admits to swelling. Hospital Course Hospital Course Hospital Course: Ms Princess Love is a 27-year-old 2 para 1 at 39 weeks gestational age. She has had a previous section for a large for gestational age infant and as result of that was offered repeat lower segment transverse section at term. She was admitted to [facility] for repeat on 06/26/22. She underwent repeat low transverse section on 06/26/22. She had a live female baby (baby's name is Ervin) weighing 11 lb 0 oz. APGARs 8, 9. EBL 800 mL at time surgery. B-Patel suture was performed. She also received Methergine and Pitocin. POD # 1 she was doing well. Pain controlled. She was breast feeding. She was voiding without difficulty. Passing flatus. Tolerating regular diet. Heart was regular rate and rhythm. Lungs clear to auscultation. Abdomen soft, nontender. Vital signs stable, afebrile. She received Venofer 200mg IV x 1 dose. POD # 2 she was doing well. Pain controlled. She was breast feeding. She was voiding without difficulty. Passing flatus. Tolerating regular diet. Heart was regular rate and rhythm. Lungs clear to auscultation. Abdomen soft, nontender. Vital signs stable, afebrile. +3 bilateral lower extremity edema. No calf tenderness to palpation. Normal hospital course. She was discharged to home. 06/26/22: Hgb 12.2, Hct 30.4 06/27/22: Hgb 9.1, Hct 26.4 Exam Data for Last 24 hours Vital signs and Labs for Last 24 Hours: Temp Pulse Resp BP Pulse Ox 98.4 F 106 H 18 136/74 98 06/28/22 04:42 06/28/22 04:42 06/28/22 04:42 06/28/22 04:42 06/28/22 04:42 I & O for Last 24 hours: Intake & Output 06/25/22 06/26/22 06/27/22 06/28/22 23:59 23:59 23:59 23:59 Intake Total 1300 / 1300 0 / 0 Output Total 1200 / 1200 Balance 100 / 100 0 / 0 Weight 203 lb Constitutional Constitutional: no acute distress *Routine HEENT Exam Head: Present normocephalic Eye: Absent conjunctivae pink ENT: Present mucous membranes moist *Routine Neck Exam Neck: Present full ROM *Routine Respiratory Exam Respiratory: Present CTA bilaterally and normal respiratory effort *Routine Cardiovascular Exam Cardiovascular: Present RRR *Routine Abdominal Exam Abdominal: Present soft and normoactive bowel sounds; Absent tenderness Comments: uterine fundus firm and below umbilicus. Pfannenstiel incision clean/dry/intact, no erythema, drainage or dehiscence *Routine Rectal Exam Patient deferred: visual exam *Routine Exam Patient deferred: external exam *Routine Extremities Exam Extremities: Present edema (+3 bilateral lower extremity edema) and full ROM; Absent calf tenderness *Routine Neurological Exam Neurological: Present alert, oriented X3 and moving all extremities Routine Psychiatric Exam Psychiatric: Present normal affect and cooperative DS: Diagnosis Discharge Diagnosis (1) with 39 completed weeks gestation: Status: Acute (2) S/P : Status: Acute (3) Large for gestational age fetus affecting mother, antepartum, third trimester, single gestation: Status: Acute (4) Acute blood loss anemia: Status: Acute Meds Home Medications and Allergies Home Medications Medication Instructions Recorded Confirmed Type prenat.vits,kamini,byo-kmji-igvss 1 tab PO DAILY Supplement 11/18/21 06/26/22 History acetaminophen 325 mg tablet 975 mg PO Q6HP PRN Pain #60 tabs 06/28/22 Rx ibuprofen 400 mg tablet 800 mg PO Q8HP PRN Mild To 06/28/22 Rx Moderate Pain #40 tabs oxycodone 5 mg tablet 5 mg PO Q4HP PRN Moderate To 06/28/22 Rx Severe Pain #20 tabs
== END 2022-06-28 13:26 | disposition home or self-care (01) | DRG 788 ==
PROVIDERS: Admitting Provider Nurse Practitioner Obstetrics & Gynecology; PCP Family Medicine; Visit Provider Nurse Practitioner Obstetrics & Gynecology
PROC: 10D00Z1 Extraction of Products of Conception, Low, Open Approach (ICD-10-PCS; CPT 59514; principal; 2022-06-26 07:30)
DX: O33.5XX0 Maternal care for disproportion due to unusually large fetus, not applicable or unspecified (principal); Z3A.39 39 weeks gestation of pregnancy; Z37.0 Single live birth; O75.89 Other specified complications of labor and delivery; O34.211 Maternal care for low transverse scar from previous cesarean delivery; N85.8 Other specified noninflammatory disorders of uterus
CPT/HCPCS: 59514; 36415; 59025; 80053; 80305; 81001; 82800; 85014; 85018; 85025; 86850; 94761; C9290; C9803; G0283; J1756; J2405; U0003; U0005

== ENCOUNTER 2022-10-11 08:15 | Emergency (ER) | payer BC, SELFPAY ==
[2022-10-11 08:35] VITALS: BP 106/66; PULSE 130; RESP 18; TEMP 36.9; O2SAT 98; BMI 27.4
[2022-10-11 08:55] LABS: UTC Strep Screen (Rapid) Positive (Negative)
[2022-10-11 09:06] LABS: UTC Influenza A Antigen Negative (Negative); UTC Influenza B Antigen Negative (Negative)
--- NOTE | 2022-10-11 09:30 | EXP.UTC ---
Discharge Plan Disposition Patient Disposition: Home, Self-Care Condition: Good Prescriptions Prescriptions: New amoxicillin 875 mg tablet 875 mg PO BID 10 Days Qty: 20 0RF No Action norethindrone (contraceptive) [Ortho Micronor] 0.35 mg tablet 0.35 mg PO DAILY Qty: 84 3RF Rx Instructions: Start on Thursday prenat.vits,kamini,gli-fyft-unfqx Tablet 1 tab PO DAILY Referrals Follow up/Referrals: Brit Hanson MD [Primary Care Provider] - See instructions Clinical Impressions Clinical Impression: Strep sore throat Instructions Patient Instructions: DI for Strep Throat, Gastroenteritis Diet Discharge ED Provider: Jes Roman [facility] [place] HPI General Stated complaint: Sore throat, fever, chills Mode of Arrival: Ambulatory Source of Information: Patient Limitations: No Limitations Time Seen by Provider: 10/11/22 09:24 Description of Symptoms (Recalled from Triage Doc. by RN): PATIENT C/O SORE THROAT, FEVER, CHILLS, AND BODY ACHES SINCE YESTERDAY HEENT Symptoms (Recalled from RN notes): Yes Resp Symptoms (Recalled from RN notes): No Skin Symptoms (Recalled from RN notes): No MS Symptoms (Recalled from RN notes): No Functional Status (Recalled from RN notes): WNL History of Present Illness Provider Complaint: Sore throat, fever, chills, body aches, nausea, and vomiting since yesterday. She is currently nursing her 3 month old and has not taken anything for her symptoms. Related Data Home Medications Medication Instructions Recorded Confirmed prenat.vits,kamini,dzi-jkyq-fhhef 1 tab PO DAILY Supplement 11/18/21 08/07/22 Previous Rx's Medication Instructions Recorded norethindrone (contraceptive) 0.35 0.35 mg PO DAILY #84 tabs 08/07/22 mg tablet (Ortho Micronor) amoxicillin 875 mg tablet 875 mg PO BID 10 days #20 tabs 10/11/22 Allergies Allergy/AdvReac Type Severity Reaction Status Date / Time No Known Allergies Allergy Verified 08/07/22 09:50 Worker's Comp Is this a Worker's Comp case?: No [facility] Disclaimer: The information contained in this section may have been updated after the patient was seen, as this information can be updated by other users. Medical History Acute blood loss anemia with 39 completed weeks gestation Surgical History History of History of section S/P Family History Other Family history non-contributory Social History Smoking Status: Never smoker alcohol intake: never counseling provided: none substance use type: denies use current occupational status: employed Travel in the last 8 weeks: None household members: significant other housing: house ROS Obtained: Yes All systems reviewed & no additional complaints except as documented Constitutional Constitutional: Reports system reviewed and no additional complaints, except as documented, Reports body ache, Reports chills, Reports fever(s), Reports headache(s) and Reports malaise Eyes Eyes: Reports system reviewed and no additional complaints, except as documented ENT Ears, Nose, Mouth, and Throat: Reports system reviewed and no additional complaints, except as documented, Reports headache(s), Reports odynophagia and Reports sore throat Cardiovascular Cardiovascular: Reports system reviewed and no additional complaints, except as documented Respiratory Respiratory: Reports system reviewed and no additional complaints, except as documented Gastrointestinal Gastrointestingal: Reports system reviewed and no additional complaints, except as documented, abdominal pain, nausea, odynophagia and vomiting Genitourinary Female Genitourinary: Reports system reviewed and no additional complaints, except as documented Musculoskeletal Musculos
[2022-10-11 09:33] VITALS: BP 106/66; PULSE 130; RESP 18; TEMP 36.9; O2SAT 98
== END 2022-10-11 09:40 | disposition home or self-care (01) ==
PROVIDERS: Emergency Provider Nurse Practitioner Family; PCP Family Medicine
DX: J02.0 Streptococcal pharyngitis (principal)
CPT/HCPCS: 87804; 87880; 99212; 99213; G0463

== ENCOUNTER 2023-08-15 08:17 | Emergency (ER) | payer BC, SELFPAY ==
[2023-08-15 08:25] VITALS: BP 107/63; PULSE 114; RESP 21; TEMP 36.5; O2SAT 97; BMI 29.8
--- NOTE | 2023-08-15 08:37 | ED_ITS ---
Discharge Plan Disposition Patient Disposition: Home, Self-Care Condition: Good Prescriptions Prescriptions: New cephalexin 500 mg capsule 500 mg PO Q12H Qty: 20 0RF No Action escitalopram oxalate 5 mg tablet 5 mg PO DAILY Patient Comments: TAKE 1 TABLET BY MOUTH ONCE DAILY FOR DEPRESSION Referrals Follow up/Referrals: Brit Hanson MD [Primary Care Provider] - See instructions Clinical Impressions Clinical Impression: Strep sore throat Instructions Patient Instructions: DI for Strep Throat Discharge ED Provider: Jes Roman [facility] [place] HPI General Stated complaint: sore throat Mode of Arrival: Ambulatory Source of Information: Patient Limitations: No Limitations Time Seen by Provider: 08/15/23 08:35 Description of Symptoms (Recalled from Triage Doc. by RN): PATIENT C/O SORE THROAT AND FEVER THAT STARTED LAST NIGHT HEENT Symptoms (Recalled from RN notes): Yes Resp Symptoms (Recalled from RN notes): No Skin Symptoms (Recalled from RN notes): No MS Symptoms (Recalled from RN notes): No Functional Status (Recalled from RN notes): WNL History of Present Illness Provider Complaint: Pt reports that she had a fever of 103.5 last night and had to take Tylenol then Ibuprofen to get it down. She reports that her only other symptom has been a sore throat. She reports that she gets strep often and is scheduled to have her tonsils out in September. Related Data Home Medications Medication Instructions Recorded Confirmed escitalopram oxalate 5 mg tablet 5 mg PO DAILY 07/23/23 08/15/23 Previous Rx's Medication Instructions Recorded cephalexin 500 mg capsule 500 mg PO Q12H #20 caps 08/15/23 Allergies Allergy/AdvReac Type Severity Reaction Status Date / Time No Known Allergies Allergy Verified 07/23/23 11:35 Worker's Comp Is this a Worker's Comp case?: No [facility] Disclaimer: The information contained in this section may have been updated after the patient was seen, as this information can be updated by other users. Medical History (Updated 08/15/23 @ 08:43 by Miracle Elias RN) Acute blood loss anemia Furuncle with 39 completed weeks gestation Recurrent streptococcal tonsillitis Surgical History History of History of section S/P Family History Other Family history non-contributory Social History Smoking Status: Never smoker alcohol intake: never counseling provided: none substance use type: denies use current occupational status: employed Travel in the last 8 weeks: None household members: significant other housing: house ROS Obtained: Yes All systems reviewed & no additional complaints except as documented Constitutional Constitutional: Reports system reviewed and no additional complaints, except as documented, Reports fever(s) and Reports malaise Eyes Eyes: Reports system reviewed and no additional complaints, except as documented ENT Ears, Nose, Mouth, and Throat: Reports system reviewed and no additional complaints, except as documented, Reports odynophagia and Reports sore throat Cardiovascular Cardiovascular: Reports system reviewed and no additional complaints, except as documented Respiratory Respiratory: Reports system reviewed and no additional complaints, except as documented Gastrointestinal Gastrointestingal: Reports system reviewed and no additional complaints, except as documented and odynophagia Genitourinary Female Genitourinary: Reports system reviewed and no additional complaints, except as documented Musculoskeletal Musculoskeletal: Reports system reviewed and no additional complaints, except as documented Integumentary/Breasts Skin/Breast: Reports system reviewed and no additional complaints, except as documented Neurologic Neurologic: Reports system reviewed and no additional complaints, except as documented Endocrine Endocrine: Reports system reviewed and no additional complaints, except as documented Hematologic/Lymphatic Henatologic/Lymphatic: Reports system reviewed and no additional complaints, except as documented Allergic/Immunologic Allergic/Immunologic: Reports system reviewed and no additional complaints, except as documented Physical Exam General General appearance: alert and in no apparent distress Head Head exam: atraumatic and normocephalic Eye Eye exam: Present normal appearance Expanded ENT Exam External ear exam: Present normal external inspection Nose exam: Absent sinus tenderness Nasal speculum exam: Bilateral: normal Mouth exam: Present normal external inspection and tongue normal Teeth exam: Present normal inspection Throat exam: Present tonsillar erythema, tonsillomegaly and tonsillar exudate Neck Neck exam: Present normal inspection Chest Chest inspection: Present normal inspection and symmetric chest wall rise Respiratory Respiratory exam: Present normal lung sounds bilaterally Cardiovascular Cardiovascular exam: Present regular rate and normal rhythm Abdominal Exam Abdominal exam: Present soft and normal bowel sounds Extremities Exam Extremities exam: Present normal inspection Back Exam Back exam: Present normal inspection Neurological Exam Neurological exam: Present alert and oriented X3 Psychiatric Psychiatric exam: Present normal affect and normal mood Skin Skin exam: Present warm, dry and intact Lymphatic Lymphatic Findings: no adenopathy Medical Decision Making Anselmo Inquiry Pt receiving controlled substance: No Anselmo was queried for this patient: No Vital Signs: 08/15/23 08:25 Temperature 97.7 F Temperature Source Oral Pulse Rate [Left Brachial] 114 H Respiratory Rate 21 Blood Pressure [Left Arm] 107/63 L Blood Pressure Mean [Left Arm] 77 Blood Pressure Source [Left Arm] Automatic Cuff Blood Pressure Position [Left Arm] Sitting 02 Sat by Pulse Oximetry 97 Oxygen Delivery Method Room Air
[2023-08-15 08:40] VITALS: BP 107/63; PULSE 114; RESP 21; TEMP 36.5; O2SAT 97
[2023-08-15 08:40] LABS: UTC Strep Screen (Rapid) Positive (Negative)
== END 2023-08-15 08:46 | disposition home or self-care (01) ==
PROVIDERS: Emergency Provider Nurse Practitioner Family; PCP Family Medicine
DX: J02.0 Streptococcal pharyngitis (principal); R07.0 Pain in throat; R50.9 Fever, unspecified
CPT/HCPCS: 87880; 99212; 99214; G0463

== ENCOUNTER 2024-05-06 17:17 | Emergency (ER) | payer BC, SELFPAY ==
[2024-05-06 18:25] VITALS: BP 126/75; PULSE 79; RESP 20; TEMP 37; O2SAT 100; BMI 30.9
[2024-05-06 18:39] LABS: UTC Strep Screen (Rapid) Negative (Negative)
--- NOTE | 2024-05-06 18:42 | EXP.UTC ---
Discharge Plan Disposition Patient Disposition: Home, Self-Care Condition: Good Prescriptions Prescriptions: New amoxicillin 875 mg tablet 875 mg PO Q12H Qty: 20 0RF Referrals Follow up/Referrals: Brit Hanson MD [Primary Care Provider] - See instructions Activity Restrictions/Add. Instructions Additional Instructions/Restrictions: *Monitor Temp, Over the counter Motrin or Tylenol as directed/as needed Tylenol every 4 hours and Motrin every 6 hours (as long as your family doctor has told you that you can take it) for fever or pain. and straight to ER if unable to lower temp less than 101.0 after medication given *Warm salt water gargles may help to soothe the throat *Throat Lozenges? *Warm fluids like tea with honey may help to soothe the throat? *Sleep elevated *Humidifier/Vaporizer Your throat swab was sent for culture. Those results are typically sent to your primary care. Be sure to follow up in 2-3 days with your family doctor/primary care physician if no improvement so they can review those result and treat if necessary. If you don?t have a primary care doctor, I recommend you get one but in the mean time, you will have to return to a walk in clinic Follow up IMMEDIATELY for new or worsening symptoms or no Noticeable improvement over the next 48-72 hours. 911 for difficulty breathing or swallowing Clinical Impressions Clinical Impression: Pharyngitis Instructions Patient Instructions: Sore Throat, Amoxicillin Print Language Print Language: Faroese Discharge ED Provider: Shona Prasad [facility] General Stated complaint: sore throat,BHARDWAJ,tired Mode of Arrival: Ambulatory Source of Information: Patient Limitations: No Limitations Time Seen by Provider: 05/06/24 18:42 Description of Symptoms (Recalled from Triage Doc. by RN): PATIENT C/O SORE THROAT X 3 DAYS HEENT Symptoms (Recalled from RN notes): Yes Resp Symptoms (Recalled from RN notes): No Skin Symptoms (Recalled from RN notes): No MS Symptoms (Recalled from RN notes): No Functional Status (Recalled from RN notes): WNL History of Present Illness Provider Complaint: Patient states that she has been having sore throat for the last 3-4 days and has blisters on the back of her throat worried that she may have strep throat so she came in to get checked Related Data Previous Rx's ?Medication ?Instructions ?Recorded amoxicillin 875 mg tablet 875 mg PO Q12H #20 tabs 05/06/24 Allergies Allergy/AdvReac Type Severity Reaction Status Date / Time No Known Allergies Allergy Verified 07/23/23 11:35 Worker's Comp Is this a Worker's Comp case?: No [facility] Disclaimer: The information contained in this section may have been updated after the patient was seen, as this information can be updated by other users. Medical History (Updated 05/06/24 @ 18:48 by Shona Prasad APRN) Recurrent streptococcal tonsillitis Furuncle with 39 completed weeks gestation Acute blood loss anemia Surgical History S/P History of History of section Family History Other Family history non-contributory Social History Smoking Status: Never smoker alcohol intake: never counseling provided: none substance use type: denies use current occupational status: employed Travel in the last 8 weeks: None household members: significant other housing: house ROS Obtained: Yes All systems reviewed & no additional complaints except as documented and Yes Systems reviewed as appropriate & no additional complaints except as documented Constitutional Constitutional: Reports system reviewed and no additional complaints, except as documented, Reports as per HPI and Reports headache(s) ENT Ears, Nose, Mouth, and Throat: Reports system reviewed and no additional complaints, except as documented, Reports as per HPI, Reports headache(s) and Reports sore throat Cardiovascular Cardiovascular: Reports system reviewed and no additional complaints, except as documented and Reports as per HPI Respiratory Respiratory: Reports system reviewed and no additional complaints, except as documented and Reports as per HPI Gastrointestinal Gastrointestingal: Reports system reviewed and no additional complaints, except as documented and as per HPI Neurologic Neurologic: Reports headache(s) Physical Exam General General appearance: alert and in no apparent distress ENT ENT exam: Present mucous membranes moist Expanded ENT Exam Nose exam: Absent sinus tenderness Throat exam: Present tonsillar erythema (blister like lesions noted ) Chest Chest inspection: Present normal inspection and symmetric chest wall rise; Absent tenderness Respiratory Respiratory exam: Present normal lung sounds bilaterally; Absent respiratory distress or wheezes Cardiovascular Cardiovascular exam: Present regular rate, normal rhythm and normal heart sounds Abdominal Exam Abdominal exam: Present soft and normal bowel sounds; Absent distention or tenderness Neurological Exam Neurological exam: Present alert, oriented X3 and normal gait Medical Decision Making Medical Records Screening: Per USPSTF and CDC recommendations, given the prevalence of disease in our region, it is our hospital?s policy to screen for HIV and viral Hepatitis for all patients aged 18 and over and those with ongoing risk factors. Anselmo Inquiry Pt receiving controlled substance: No Anselmo was queried for this patient: No Vital Signs: 05/06/24 18:25 Temperature 98.6 F Temperature Source Oral Pulse Rate [Left Brachial] 79 Respiratory Rate 20 Blood Pressure [Left Arm] 126/75 Blood Pressure Mean [Left Arm] 92 Blood Pressure Source [Left Arm] Automatic Cuff Blood Pressure Position [Left Arm] Sitting 02 Sat by Pulse Oximetry 100 Oxygen Delivery Method Room Air Lab Data Lab results reviewed: Yes I reviewed the patient's lab results. Lab Results 05/06/24 18:31: Strep Scn Rapid Clinic Negative Orders (Tests/Meds): ORDERS Category Date Time Status Strep Screen Confirmation Stat Micro 05/06/24 18:31 Received
[2024-05-06 18:50] VITALS: BP 126/75; PULSE 79; RESP 20; TEMP 37; O2SAT 100
== END 2024-05-06 18:52 | disposition home or self-care (01) ==
PROVIDERS: Emergency Provider Nurse Practitioner; PCP Family Medicine
DX: J02.9 Acute pharyngitis, unspecified (principal); R51.9 Headache, unspecified; R53.83 Other fatigue
CPT/HCPCS: 87880; 99212; G0381

== ENCOUNTER 2024-07-05 10:08 | Emergency (ER) | payer BC, SELFPAY ==
[2024-07-05 10:20] VITALS: BP 122/73; PULSE 101; RESP 18; TEMP 36.9; O2SAT 99; BMI 30.5
[2024-07-05 10:28] LABS: UTC Strep Screen (Rapid) Negative (Negative)
--- NOTE | 2024-07-05 10:37 | ED_ITS ---
Discharge Plan Disposition Patient Disposition: Home, Self-Care Condition: Good Prescriptions Prescriptions: New prednisone 10 mg tablet 10 mg PO BID 3 Days Qty: 6 0RF amoxicillin 875 mg tablet 875 mg PO Q12H Qty: 20 0RF [id number]-[id number]-MP [Bromfed DM] 2-30-10 mg/5 mL Syrup 5 ml PO Q6H PRN (Reason: Cough) Qty: 240 0RF Referrals Follow up/Referrals: Brit Hanson MD [Primary Care Provider] - See instructions Activity Restrictions/Add. Instructions Additional Instructions/Restrictions: Drink plenty of fluids. Take tylenol or ibuprofen for pain or fever. Take the medications as directed. Follow up with your regular doctor. GO TO THE ER FOR ANY WORSENING SYMPTOMS Clinical Impressions Clinical Impression: Pharyngitis Instructions Patient Instructions: Sore Throat, DI for Pharyngitis/Tonsillopharyngitis -- Adult, Prednisone Print Language Print Language: Romanian Discharge ED Provider: Frankie Giraldo [facility] General Stated complaint: possible strep Mode of Arrival: Ambulatory Source of Information: Patient Time Seen by Provider: 07/05/24 10:23 Description of Symptoms (Recalled from Triage Doc. by RN): SORE THROAT, BHARDWAJ, FEVER HEENT Symptoms (Recalled from RN notes): Yes Resp Symptoms (Recalled from RN notes): No Skin Symptoms (Recalled from RN notes): No MS Symptoms (Recalled from RN notes): No Functional Status (Recalled from RN notes): WNL History of Present Illness Provider Complaint: She states that for the past 3 days she has had worsening sore throat, sinus congestion and malaise. She states that she feels like she has strep throat. Related Data Previous Rx's ?Medication ?Instructions ?Recorded amoxicillin 875 mg tablet 875 mg PO Q12H #20 tabs 07/05/24 npzgjdphadyemcb-zswlgguikoctlsj-LF 5 ml PO Q6H PRN Cough #240 mL 07/05/24 2 mg-30 mg-10 mg/5 mL oral syrup (Bromfed DM) prednisone 10 mg tablet 10 mg PO BID 3 days #6 tabs 07/05/24 Allergies Allergy/AdvReac Type Severity Reaction Status Date / Time No Known Allergies Allergy Verified 07/23/23 11:35 Worker's Comp Is this a Worker's Comp case?: No PFSH PFSH Disclaimer: The information contained in this section may have been updated after the patient was seen, as this information can be updated by other users. 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4 F or 38 C)?: No Have you tested positive for COVID-19: No Exposed to someone with COVID-19 in past 14 days?: No Do you have a sore throat?: Yes Do you have a cough?: Yes Do you have any weakness?: No Do you have any diarrhea?: No Are you experiencing any unusual bleeding?: No Do you have any muscle aches/pain?: No Do you have any abdominal pain?: No Are you experiencing loss of taste or smell?: No ROS Obtained: Yes All systems reviewed & no additional complaints except as documented Constitutional Constitutional: Reports chills and Reports fever(s) Eyes Eyes: Denies eye discharge ENT Ears, Nose, Mouth, and Throat: Reports as per HPI Cardiovascular Cardiovascular: Denies chest pain Respiratory Respiratory: Denies chest congestion and Reports cough Gastrointestinal Gastrointestingal: Reports nausea; Denies abdominal pain, constipation, cramping, diarrhea or vomiting Musculoskeletal Musculoskeletal: Denies arthralgias Integumentary/Breasts Skin/Breast: Denies rash Neurologic Neurologic: Denies paresthesias Physical Exam General General appearance: alert and in no apparent distress Head Head exam: atraumatic, normocephalic and normal inspection Eye Eye exam: Present normal appearance, PERRL and EOMI ENT ENT exam: Present mucous membranes moist and normal external ear exam Expanded ENT Exam TM/Canal exam: Bilateral TM: erythema and bulging Nose exam: Absent sinus tenderness Mouth exam: Present normal external inspection; Absent drooling Teeth exam: Present normal inspection Throat exam: Present tonsillar erythema, tonsillomegaly and tonsillar exudate Neck Neck exam: Present normal inspection, full ROM and trachea midline; Absent tenderness, meningismus or lymphadenopathy Chest Chest inspection: Present normal inspection and symmetric chest wall rise; Absent tenderness Respiratory Respiratory exam: Present normal lung sounds bilaterally; Absent respiratory distress, wheezes, stridor or accessory muscle use Cardiovascular Cardiovascular exam: Present regular rate and normal rhythm; Absent systolic murmur or diastolic murmur Abdominal Exam Abdominal exam: Present soft and normal bowel sounds; Absent distention, tenderness, guarding, rebound or rigidity Extremities Exam Extremities exam: Present normal inspection and normal capillary refill; Absent calf tenderness Back Exam Back exam: Present normal inspection and full ROM; Absent tenderness, CVA tenderness (R) or CVA tenderness (L) Neurological Exam Neurological exam: Present alert, oriented X3 and CN II-XII intact Psychiatric Psychiatric exam: Present normal affect and normal mood Skin Skin exam: Present warm, dry, intact and normal color Medical Decision Making Medical Records Medical records reviewed: No I reviewed the patient's medical records. Screening: Per USPSTF and CDC recommendations, given the prevalence of disease in our region, it is our hospital?s policy to screen for HIV and viral Hepatitis for all patients aged 18 and over and those with ongoing risk factors. Anselmo Inquiry Pt receiving controlled substance: No Vital Signs: 07/05/24 10:20 Temperature 98.4 F Temperature Source Oral Pulse Rate [Left Radial] 101 H Respiratory Rate 18 Blood Pressure [Left Arm] 122/73 Blood Pressure Mean [Left Arm] 89 02 Sat by Pulse Oximetry 99 Lab Data Lab results reviewed: Yes I reviewed the patient's lab results. Lab Results 07/05/24 10:20: Strep Scn Rapid Clinic Negative Orders (Tests/Meds): ORDERS Category Date Time Status Strep Screen Confirmation Stat Micro 07/05/24 10:20 Received
[2024-07-05 11:18] VITALS: BP 122/73; PULSE 101; RESP 18; TEMP 36.9
== END 2024-07-05 11:20 | disposition home or self-care (01) ==
PROVIDERS: Emergency Provider Nurse Practitioner Family; PCP Family Medicine
DX: J02.9 Acute pharyngitis, unspecified (principal); R50.9 Fever, unspecified; R05.9 Cough, unspecified; R51.9 Headache, unspecified; R09.81 Nasal congestion; R11.0 Nausea
CPT/HCPCS: 87880; 99212; G0381